=== PATIENT | male | born 1960 | race African-American/Black ===

== ENCOUNTER 2018-10-27 09:20 | Inpatient (IN) | payer OTHER ==
[2018-10-27 10:22] VITALS: BMI 16.7
--- NOTE | 2018-10-27 11:11 | HP ---
CIWA Score - Admission Criteria [facility] Guidelines: Admission for Medically Managed Detox: Requires at least one of the followin. CIWA greater than 12 2. Seizures within the past 24 hours 3. Delirium tremens within the past 24 hours 4. Hallucinations within the past 24 hours 5. Acute intervention needed for co occurring medical disorder 6. Acute intervention needed for co occurring psychiatric disorder 7. Severe withdrawal that cannot be handled at a lower level of care (continued vomiting, continued diarrhea, abnormal vital signs) requiring intravenous medication and/or fluids 8. Admission ROS [facility] - HPI Chief Complaint: i am here for rehab from crack Allergies/Adverse Reactions: Allergies Allergy/AdvReac Type Severity Reaction Status Date / Time peanut Allergy Severe Swelling Verified 10/27/18 10:55 NKDA Allergy Uncoded 10/27/18 10:55 History of Present Illness: this 57 years old male with crack dependence seeking rehab,patient was seen in [place] last night for coughing and yellowish ,had xray done at [facility],giving coughing, history of hypertension,non compliance hepatitis c follow up with medical provider,no treatment weight loss depression nicotine dependence longest period of sobriety 2 years non compliance with medication Exam Limitations: No Limitations - Ebola screening Have you traveled outside of the country in the last 21 days: No Have you had contact with anyone from an Ebola affected area: No Have you been sick,other than usual withdrawal symptoms: No Do you have a fever: No - Review of Systems Constitutional: No Symptoms Reported EENT: reports: No Symptoms Reported Respiratory: reports: No Symptoms reported, Other (coughing with yellowish mucous for 1 week) Cardiac: reports: No Symptoms Reported GI: reports: No Symptoms Reported : reports: No Symptoms Reported Musculoskeletal: reports: No Symptoms Reported Integumentary: reports: Dryness Neuro: reports: No Symptoms reported Endocrine: reports: No Symptoms Reported Hematology: reports: No Symptoms Reported Psychiatric: reports: No Sypmtoms Reported, Judgement Intact, Mood/Affect Appropiate, Orientated x3, Depressed Other Systems: Reviewed and Negative Patient History - Patient Medical History Hx Anemia: No Hx Asthma: No Hx Chronic Obstructive Pulmonary Disease (COPD): No Hx Cancer: No Hx Cardiac Disorders: No Hx Congestive Heart Failure: No Hx Hypertension: Yes (non compliance with medication) Hx Hypercholesterolemia: No Hx Pacemaker: No HX Cerebrovascular Accident: No Hx Seizures: No Hx Dementia: No Hx Diabetes: No Hx Gastrointestinal Disorders: No Hx Liver Disease: No Hx Genitourinary Disorders: No Hx Sexually Transmitted Disorders: No Hx Renal Disease (ESRD): No Hx Thyroid Disease: No Hx Human Immunodeficiency Virus (HIV): No (last 04/15 negative) Hx Hepatitis C: Yes (not treated) Hx Depression: Yes (no med) Hx Suicide Attempt: No Hx Bipolar Disorder: No Hx Schizophrenia: No Other Medical History: no suicidal,no homicidal,coughing with yellowish mucous for 1 week - Patient Surgical History Past Surgical History: No - PPD History Previous Implant?: Yes Documented Results: Negative w/o proof Implanted On Prior [facility] Admission?: No PPD to be Administered?: Yes - Smoking Cessation Smoking history: Current every day smoker Have you smoked in the past 12 months: Yes Aproximately how many cigarettes per day: 10 Cigars Per Day: 0 Hx Chewing Tobacco Use: No Initiated information on smoking cessation: Yes 'Breaking Loose' booklet given: 10/27/18 - Substance & Tx. History Hx Alcohol Use: No Hx Substance Use: Yes Substance Use Type: Cocaine Hx Substance Use Treatment: Yes (in 2016 [facility]) - Substances Abused Crack Route: Smoking Frequency: Daily Amount used: $100 Age of first use: 48 Date of Last Use: 10/26/18 Family Disease History - Family Disease History Family Disease History: Other: Father (alcohol,cirrhosis,), Mother ( alzeimer,) Admission Physical Exam [facility] - Vital Signs Vital Signs: Vital Signs - 24 hr 10/27/18 10:20 Temperature 98.8 F Pulse Rate 90 Respiratory 20 Rate Blood Pressure 170/110 H - Physical General Appearance: Yes: Within Normal Limits HEENTM: Yes: JOVITA, Pharynx Normal Respiratory: Yes: Lungs Clear, Normal Breath Sounds, No Respiratory Distress Neck: Yes: Within Normal Limits, Supple, Trachea in good position Breast: Yes: Within Normal Limits Cardiology: Yes: Within Normal Limits, Regular Rhythm, Regular Rate, S1, S2 Abdominal: Yes: Within Normal Limits, Normal Bowel Sounds, Non Tender, Soft Genitourinary: Yes: Within Normal Limits Back: Yes: Within Normal Limits Musculoskeletal: Yes: Within Normal Limits Extremities: Yes: Within Normal Limits Neurological: Yes: social security benefits interviewer II-XII NML intact, Fully Oriented, Alert, Motor Strength 5/5 Integumentary: Yes: Within Normal Limits Lymphatic: Yes: Within Normal Limits - Diagnostic (1) Cocaine dependence Current Visit: Yes Status: Acute (2) Essential hypertension Current Visit: Yes Status: Acute (3) Hepatitis C Current Visit: Yes Status: Acute (4) Weight loss Current Visit: Yes Status: Acute (5) Acute bronchitis Current Visit: Yes Status: Acute (6) Depression Current Visit: Yes Status: Acute (7) Nicotine dependence Current Visit: Yes Status: Acute Cleared for Admission [facility] - Detox or Rehab Claeared for Rehab Admission: Yes [facility] Breath Alcohol Content Breath Alcohol Content: 0 Urine Drug Screen - Results Drug Screen Negative: No Urine Drug Screen Results: MARINE-Cocaine Inpatient Rehab Admission - Rehab Decision to Admit Inpatient rehab admission?: Yes - Initial Determination Are CD services needed?: Yes Free of communicable disease: Yes Not in need of hospitalization: Yes - Rehab Admission Criteria Previous failed treatment: Yes Poor recovery environment: Yes Comorbidities: Yes Lacks judgement: No Patient is meeting Inpatient Rehab admission criteria:: Yes
[2018-10-27] MEDS ORDERED: MAG HYDROX/AL HYDROX/SIMETH 30 ML UNIT-DOSE CUP PO PRN (11:21)
[2018-10-27] MEDS ORDERED: MAGNESIUM HYDROX 2400MG/30ML ORAL SUSPENSION 30 ML CUP PO PRN (11:21)
[2018-10-27] MEDS ORDERED: NICOTINE POLACRILEX 2 MG GUM BUC PRN (11:21)
[2018-10-27] MEDS ORDERED: LOPERAMIDE HCL 2 MG CAPSULE PO PRN (11:21)
[2018-10-27] MEDS ORDERED: MAGNESIUM CITRATE 300 ML BOTTLE PO PRN (11:21)
[2018-10-27] MEDS ORDERED: hydrOXYzine PAMOATE 25 MG CAPSULE (FP) PO PRN (11:21)
[2018-10-27] MEDS ORDERED: ACETAMINOPHEN 325 MG TABLET (FP) PO PRN (11:21)
[2018-10-27] MEDS ORDERED: cloNIDine HCL 0.1 MG TABLET PO ONE (11:24)
[2018-10-27] MEDS ORDERED: AZITHROMYCIN 250 MG TABLET PO ONE (11:25)
[2018-10-27] MEDS ORDERED: TUBERCULIN PPD 5 TU/0.1ML VIAL ID ONE (12:07)
[2018-10-27] MEDS: LISINOPRIL 10 MG TABLET (FP) PO SCH (12:19)
[2018-10-27] MEDS: NICOTINE 21 MG/24 HOURS TOPICAL PATCH TD SCH (12:19)
[2018-10-27 15:40] LABS: HEMATOCRIT 36.2 % (35.4-49); HEMOGLOBIN 11.9 GM/dL (11.7-16.9); MCH 28.7 pg (25.7-33.7); MCHC 32.9 g/dl (32.0-35.9); MEAN CELL VOLUME 87.2 fl (80-96); PLATELET COUNT 230 K/MM3 (134-434); RBC 4.14 M/mm3 (4.00-5.60); RDW 14.4 % (11.9-15.9); WHITE BLOOD COUNT 3.3 K/mm3 (4.0-10.0)
[2018-10-27 15:58] LABS: ALBUMIN 3.4 g/dl (3.4-5.0); ALK PHOS 81 U/L (45-117); ANION GAP 5 MMOL/L (8-16); BLOOD UREA NITROGEN 16 mg/dL (7-18); CALCIUM 8.7 mg/dL (8.5-10.1); CHLORIDE 107 mmol/L (98-107); CO2 30 mmol/L (21-32); CREATININE 1.4 mg/dL (0.55-1.3); GLUCOSE,RANDOM 86 mg/dL (74-106); POTASSIUM 4.2 mmol/L (3.5-5.1); SGOT/AST 30 U/L (15-37); SGPT/ALT 28 U/L (13-61); SODIUM 141 mmol/L (136-145); TOT PROT 7.1 g/dl (6.4-8.2)
[2018-10-27] MEDS: THIAMINE HCL 100 MG TABLET (FP) PO SCH (21:02)
[2018-10-27] MEDS ORDERED: MELATONIN 5 MG TABLETS PO PRN (22:00)
[2018-10-27 23:18] LABS: URINE APPEARANCE TURBID; URINE BILIRUBIN NEGATIVE (<2.0 mg/dL); URINE COLOR YELLOW; URINE GLUCOSE (UA) NEGATIVE (NEGATIVE); URINE KETONE NEGATIVE (NEGATIVE); URINE LEUK ESTERASE NEGATIVE (NEGATIVE); URINE NITRITE NEGATIVE (NEGATIVE); URINE PROTEIN 1+ (NEGATIVE); URINE UROBILINOGEN NEGATIVE mg/dL (0.2-1.0)
[2018-10-27 23:20] LABS: EPI CELLS RARE /HPF (FEW); URINE BACTERIA RARE /hpf (NONE SEEN); URINE MUCUS FEW
[2018-10-28] MEDS: NICOTINE 21 MG/24 HOURS TOPICAL PATCH TD SCH (09:29)
[2018-10-28] MEDS: PRENATAL VITAMINS W/ FOLIC ACID TABLET (FP) PO SCH (09:29)
[2018-10-28] MEDS: LISINOPRIL 10 MG TABLET (FP) PO SCH (09:29)
[2018-10-28] MEDS: P-EPHED 60MG/TRIPROLIDI 2.5MG TABLET PO PRN ×2 (09:31→18:42)
[2018-10-28] MEDS: guaiFENesin/D-METHORPHAN HB 10 ML UNIT-DOSE CUPS PO PRN ×2 (09:31→18:42)
[2018-10-28] MEDS: MENTHOL/PHENOL 1 EACH UD MM PRN ×2 (09:33→21:03)
[2018-10-28] MEDS: AZITHROMYCIN 250 MG TABLET PO SCH (10:53)
[2018-10-28] MEDS: THIAMINE HCL 100 MG TABLET (FP) PO SCH (21:02)
[2018-10-29] MEDS: PRENATAL VITAMINS W/ FOLIC ACID TABLET (FP) PO SCH (09:30)
[2018-10-29] MEDS: AZITHROMYCIN 250 MG TABLET PO SCH (09:30)
[2018-10-29] MEDS: LISINOPRIL 10 MG TABLET (FP) PO SCH (09:30)
[2018-10-29] MEDS: NICOTINE 21 MG/24 HOURS TOPICAL PATCH TD SCH (09:31)
[2018-10-29] MEDS: P-EPHED 60MG/TRIPROLIDI 2.5MG TABLET PO PRN (16:31)
[2018-10-29] MEDS: guaiFENesin/D-METHORPHAN HB 10 ML UNIT-DOSE CUPS PO PRN (16:31)
[2018-10-29] MEDS: MENTHOL/PHENOL 1 EACH UD MM PRN (16:31)
--- NOTE | 2018-10-29 18:09 | PN ---
[facility] Progress Note Note: bp 152/105,history of hypertension on medication lisinopril 10 mgs po daily, complaint of headache, clonidine 0,1 mg po now,bp monitoring
[2018-10-29] MEDS: IBUPROFEN 400 MG TABLET (FP) PO PRN (21:04)
[2018-10-29] MEDS: THIAMINE HCL 100 MG TABLET (FP) PO SCH (21:04)
[2018-10-29] MEDS ORDERED: cloNIDine HCL 0.1 MG TABLET PO ONE (22:11)
--- NOTE | 2018-10-29 22:14 | PN ---
[facility] Progress Note Note: Patient's blood pressure is B/P . Patient is asymptomatic Vital Signs Temperature 98.0 F 10/29/18 17:58 Pulse Rate 95 H 10/29/18 22:07 Respiratory Rate 18 10/29/18 17:58 Blood Pressure 153/109 H 10/29/18 22:07 O2 Sat by Pulse Oximetry (%) Action: Clonidine 0.1mg tablet oral ordered
[2018-10-30] MEDS: P-EPHED 60MG/TRIPROLIDI 2.5MG TABLET PO PRN (10:18)
[2018-10-30] MEDS: NICOTINE 21 MG/24 HOURS TOPICAL PATCH TD SCH (10:18)
[2018-10-30] MEDS: PRENATAL VITAMINS W/ FOLIC ACID TABLET (FP) PO SCH (10:18)
[2018-10-30] MEDS: guaiFENesin/D-METHORPHAN HB 10 ML UNIT-DOSE CUPS PO PRN (10:18)
[2018-10-30] MEDS: LISINOPRIL 10 MG TABLET (FP) PO SCH (10:21)
--- NOTE | 2018-10-30 10:24 | PN ---
[facility] Progress Note Note: PT C/O COUGHING WITH YELLOW SPUTUM OVER 1 WEEK, RUNNY NOSE, SNEEZING, HEADACHE AND ANXIETY. PT WAS ADMITTED ON 10/27/18 WITH SAME C/O AND DX ACUTE BRONCHITIS, WAS STARTED ON Z-KAL WHICH WAS COMPLETED THIS MORNING. ALSO CONCERNED WITH ELEVATE BP. PT HAD BEEN NONCOMPLIANT WITH MEDS PER HX BUT TAKEN LISINOPRIL 10 MG PO DAILY ON ADMISSION. DENIES NAUSEA, VOMITING OR DIARRHEA. AFEBRILE. PT STILL CONCERNED WHY HE IS STILL COUGHING AND WANTS "SOMETHING TO GET BETTER". ALERT O X 3. Vital Signs (72 hours) 10/27/18 10/28/18 10/28/18 13:56 00:30 03:30 Temperature 99.1 F Pulse Rate 84 Respiratory 20 18 18 Rate Blood Pressure 150/103 H 10/28/18 10/28/18 10/29/18 06:42 09:17 00:30 Temperature 97.7 F Pulse Rate 71 84 Respiratory 17 18 Rate Blood Pressure 125/89 144/86 10/29/18 10/29/18 10/29/18 03:30 06:42 09:05 Temperature 99.0 F Pulse Rate 75 84 Respiratory 18 18 Rate Blood Pressure 153/81 147/91 10/29/18 10/29/18 10/29/18 16:30 17:58 22:07 Temperature 99.6 F 98.0 F Pulse Rate 98 H 101 H 95 H Respiratory 18 18 Rate Blood Pressure 152/105 H 144/104 H 153/109 H 10/30/18 10/30/18 10/30/18 00:30 03:30 06:52 Temperature 98.6 F Pulse Rate 74 Respiratory 18 18 18 Rate Blood Pressure 108/76 Laboratory Tests 10/27/18 10/27/18 10/27/18 12:15 12:15 12:15 WBC 3.3 L RBC 4.14 Hgb 11.9 Hct 36.2 MCV 87.2 MCH 28.7 MCHC 32.9 RDW 14.4 Plt Count 230 MPV 9.0 Sodium 141 Potassium 4.2 Chloride 107 Carbon Dioxide 30 Anion Gap 5 L BUN 16 Creatinine 1.4 H Creat Clearance w eGFR 51.87 Random Glucose 86 Calcium 8.7 Total Bilirubin 1.0 AST 30 ALT 28 Alkaline Phosphatase 81 Total Protein 7.1 Albumin 3.4 Urine Color Urine Appearance Urine pH Ur Specific [place] Urine Protein Urine Glucose (UA) Urine Ketones Urine Blood Urine Nitrite Urine Bilirubin Urine Urobilinogen Ur Leukocyte Esterase Urine WBC (Auto) Urine RBC (Auto) Ur Epithelial Cells Urine Bacteria Urine Mucus RPR Titer Nonreactive 10/27/18 14:00 WBC RBC Hgb Hct MCV MCH MCHC RDW Plt Count MPV Sodium Potassium Chloride Carbon Dioxide Anion Gap BUN Creatinine Creat Clearance w eGFR Random Glucose Calcium Total Bilirubin AST ALT Alkaline Phosphatase Total Protein Albumin Urine Color Yellow Urine Appearance Turbid Urine pH 5.0 Ur Specific [place] 1.027 Urine Protein 1+ H Urine Glucose (UA) Negative Urine Ketones Negative Urine Blood Negative Urine Nitrite Negative Urine Bilirubin Negative Urine Urobilinogen Negative Ur Leukocyte Esterase Negative Urine WBC (Auto) 2 Urine RBC (Auto) 4 Ur Epithelial Cells Rare Urine Bacteria Rare Urine Mucus Few RPR Titer LUNGS:CLEAR TO AUSCULTATE; NORMAL BREATH SOUNDS AND GOOD AIR FLOW. A:URI DEHYDRATION PLANS:DISCUSSED WITH PATIENT TO INCREASE PO FLUIDS ROBITTUSSIN DM PRN FOR COUGH ACTIFED FOR NASAL CONGESTION INCREASE ENSURE PLUS 120 ML PO TID TYLENOL OR MOTRIN FOR HEADACHE ENCOURAGE PATIENT TO REPORT TO STAFF/SUPERVISOR BORDER DEPARTMENT IF SYMPTOMS PERSIST
[2018-10-30] MEDS ORDERED: LISINOPRIL 10 MG TABLET (FP) PO SCH (10:30)
--- NOTE | 2018-10-30 11:08 | EKG ---
Test Reason : Blood Pressure : / mmHG Vent. Rate : 069 BPM Atrial Rate : 069 BPM P-R Int : 120 ms QRS Dur : 080 ms QT Int : 466 ms P-R-T Axes : 054 047 051 degrees QTc Int : 499 ms NORMAL SINUS RHYTHM POSSIBLE LEFT ATRIAL ENLARGEMENT LEFT VENTRICULAR HYPERTROPHY T WAVE ABNORMALITY, CONSIDER ANTERIOR ISCHEMIA PROLONGED QT ABNORMAL ECG NO PREVIOUS ECGS AVAILABLE Confirmed by ZAUL GILES MD ([id number]) on 10/30/2018 11:08:31 AM Referred By: Confirmed By:AZUL GILES MD
[2018-10-30] MEDS: IBUPROFEN 400 MG TABLET (FP) PO PRN (17:53)
[2018-10-30] MEDS: THIAMINE HCL 100 MG TABLET (FP) PO SCH (21:07)
--- NOTE | 2018-10-30 23:38 | PN ---
[facility] Progress Note Note: asked to see client for elevated bp . upon arrival client noted seated in hallway upset with hospital security present. client reports his bp is elevated and he is not recieving txment. refused Ekg for c/o c.p. He states he does not want help. He wants to go to the hospital because his b/p is elevated. Feels as if the staff is working against him. client was offered to have another staff perform functions. He was also asked if he would like to transfer to another floor. Client refused all options. He is now denying c.p., sob, dismissive to provider and walked off into his room. Client is noted pacing back and forth yelling unreceptive to discussion and care. will allow client to calm down and will re-approach at a later time. He is a/o x3 agitated but nad noted. Vital Signs - 24 hr 10/30/18 10/30/18 10/30/18 00:30 03:30 06:52 Temperature 98.6 F Pulse Rate 74 Respiratory 18 18 18 Rate Blood Pressure 108/76 10/30/18 10/30/18 09:30 22:30 Temperature 98.8 F Pulse Rate 80 92 H Respiratory 18 18 Rate Blood Pressure 134/94 191/126 H 2400 provider went to revisit client. Whom was seen lying in his bed nad. Discussed with client findings of ekg which he had agreed to have done at some point after speaking with him earlier. Findings are c/w with previous ekg noted on 10/27 except for a few pvc. Provider offered to repeat b/p . Client immediately sprung oob and stated that "you are trying to kick me out" reassured client that this is not the case. But client again unreceptive. Stating " I am fine, I plan on leaving in the morning". continue to monitor clinically.
--- NOTE | 2018-10-31 03:38 | PN ---
[facility] Progress Note Note: PT REQUESTING TO SIGN OUT. D/W CLIENT ABOUT RISKS INVOLVED IN SIGNING OUT. ATTEMPT TO ENCOURAGE CLIENT TO CONTINUE TXMENT UNSUCCESSFUL. CLIENT FINALLY AGREES TO HAVE B/P CHECKED. Last Vital Signs Temp Pulse Resp BP Pulse Ox 98.6 F 85 20 172/110 H 10/31/18 03:29 10/31/18 03:29 10/31/18 03:29 10/31/18 03:29 CLIENT IS A/O X3 ASYMPTOMATIC. CLIENT IS IRRITABLE, AGITATED DECLINES TXMENT UNLESS HE IS SENT TO THE HOSPITAL.. CLIENT IS NOT RECEPTIVE TO PROVIDER OR OTHER STAFF. TRANSFER CLIENT TO ER FOR HTN 50 Y.O. MALE W/ COCAINE DEPENDENCE, HTN NON COMPLIANT WITH MEDICATION REGIMEN ASKING TO GO TO HOSPITAL FOR ASYMPTOMATIC ELEVATED PRESSURE, TRANSFER CLIENT TO ER/WILL UNSUCCESSFUL ATTEMPTS TO ENDORSE CLIENT TO WILL X2
--- NOTE | 2018-10-31 06:26 | PN ---
[facility] Progress Note Note: INFORMED CLIENT CLEARED TO RETURN; PER EM BA CXR NEGATIVE PT C/O COUGH GREATER THAN 1 MONTH DC LISINOPRIL START NORVASC 5 MG SHE ALSO REPORTS CLIENT EXPRESSES THAT HE WOULD LIKE TO RETURN FOR CONTINUATION OF CARE HE HAS NOWHERE ELSE TO GO Medical Decision Making - Medical Decision Making 57 y/o M hx of crack dependence (last used crack around 1 week ago), HTN, hep C , depression signed out AMA from [facility] to get evaluated in hospital as states having dry cough with L sided abd/chest pain x 1 month, not getting any better. Also mentions that since he has been in rehab (admitted 4 days ago) , his BP has been elevated. Normally takes Lisinopril 10 mg for HTN, but states yesterday his dose was increased to 20 mg. Did not take any BP meds today. Patient was seen in [facility] last week, had CXR and labs done, told he had bronchitis, and given course of Z-horacio which patient finished 3/. However, still has not noted any improvement in cough. Patient mentions having normal cardiac cath last year. Denies fever, sob, n/v/d. EKG: NSR at 69 bpm, LVH (seen on prior EKG as well) CXR wet read negative Chronic dry cough likely related to Lisinopril use Patient given Norvasc 5 mg with repeat BP being 152/94, HR 77 St[facility] [report given to MASON Shabazz]
[2018-10-31] MEDS: NICOTINE 21 MG/24 HOURS TOPICAL PATCH TD SCH (10:00)
[2018-10-31] MEDS: PRENATAL VITAMINS W/ FOLIC ACID TABLET (FP) PO SCH (10:00)
[2018-10-31 12:54] VITALS: TEMP 97.8
[2018-10-31 12:55] VITALS: BP 154/103; PULSE 90
--- NOTE | 2018-10-31 14:01 | EKG ---
Test Reason : Blood Pressure : / mmHG Vent. Rate : 080 BPM Atrial Rate : 080 BPM P-R Int : 124 ms QRS Dur : 086 ms QT Int : 428 ms P-R-T Axes : 073 037 067 degrees QTc Int : 493 ms SINUS RHYTHM WITH MARKED SINUS ARRHYTHMIA WITH OCCASIONAL PREMATURE VENTRICULAR COMPLEXES POSSIBLE LEFT ATRIAL ENLARGEMENT LEFT VENTRICULAR HYPERTROPHY PROLONGED QT ABNORMAL ECG WHEN COMPARED WITH ECG OF 27-OCT-2018 11:50, PREMATURE VENTRICULAR COMPLEXES ARE NOW PRESENT T WAVE INVERSION NO LONGER EVIDENT IN ANTERIOR LEADS Confirmed by MD Jero, Jani ([id number]) on 10/31/2018 2:00:58 PM Referred By: Confirmed By:Jani Nogueira MD
--- NOTE | 2018-10-31 15:53 | PN ---
[facility] Progress Note Note: PT DECLINED TO CONTINUE WITH REHAB FOR PERSONAL REASONS STATING HE DOES NOT LIKE IT HERE. PT WAS COUNSELLED BY HIS COUNSELLOR, NURSE AND THIS [employer] PRESS OPERATOR BUT PT INSISTS HE WANTS TO LEAVE. PT WAS REFERRED BY HIS COUNSELLOR TO THE [facility] ON [address], [place]. [place] STATED HE HAS PRIMARY CARE WITH [facility] IN THE [place] AND HAS APPOINTMENT WITH HIS DOCTOR ON . PT STATED THAT HE HAS OWN MEDICATIONS. PT IS ALERT OX3. DENIES S/H/I. Home Medications Medication Instructions Recorded Lisinopril [Prinivil] 20 mg PO DAILY 10/27/18 Loperamide HCl [Imodium -] 4 mg PO Q6H PRN 10/31/18 Magnesium Citrate [Citroma -] 150 ml PO Q48H PRN 10/31/18 Magnesium Hydrox 2400MG/30Ml [Milk 30 ml PO DAILY PRN 10/31/18 of Magnesia -] Melatonin 5 mg PO HS PRN 10/31/18 Nicotine Patch [Nicoderm Patch -] 1 patch TD DAILY 10/31/18 P-Ephed 60Mg/Triprolidi 2.5MG 1 combo PO TID PRN 10/31/18 [Actifed -] Thiamine Mononitrate [Vitamin B-1] 100 mg PO HS 10/31/18 Vital Signs (72 hours) 10/29/18 10/29/18 10/29/18 00:30 03:30 06:42 Temperature 99.0 F Pulse Rate 75 Respiratory 18 18 18 Rate Blood Pressure 153/81 10/29/18 10/29/18 10/29/18 09:05 16:30 17:58 Temperature 99.6 F 98.0 F Pulse Rate 84 98 H 101 H Respiratory 18 18 Rate Blood Pressure 147/91 152/105 H 144/104 H 10/29/18 10/30/18 10/30/18 22:07 00:30 03:30 Temperature Pulse Rate 95 H Respiratory 18 18 Rate Blood Pressure 153/109 H 10/30/18 10/30/18 10/30/18 06:52 09:30 22:30 Temperature 98.6 F 98.8 F Pulse Rate 74 80 92 H Respiratory 18 18 18 Rate Blood Pressure 108/76 134/94 191/126 H 10/31/18 10/31/1810/31/19 00:30 03:29 12:52 Temperature 98.6 F 97.8 F Pulse Rate 85 83 Respiratory 18 20 16 Rate Blood Pressure 172/110 H 148/94 10/31/18 12:54 Temperature 97.8 F Pulse Rate 90 Respiratory 16 Rate Blood Pressure 154/103 H Laboratory Tests 10/27/18 10/27/18 10/27/18 12:15 12:15 12:15 WBC 3.3 L RBC 4.14 Hgb 11.9 Hct 36.2 MCV 87.2 MCH 28.7 MCHC 32.9 RDW 14.4 Plt Count 230 MPV 9.0 Sodium 141 Potassium 4.2 Chloride 107 Carbon Dioxide 30 Anion Gap 5 L BUN 16 Creatinine 1.4 H Creat Clearance w eGFR 51.87 Random Glucose 86 Calcium 8.7 Total Bilirubin 1.0 AST 30 ALT 28 Alkaline Phosphatase 81 Total Protein 7.1 Albumin 3.4 Urine Color Urine Appearance Urine pH Ur Specific [place] Urine Protein Urine Glucose (UA) Urine Ketones Urine Blood Urine Nitrite Urine Bilirubin Urine Urobilinogen Ur Leukocyte Esterase Urine WBC (Auto) Urine RBC (Auto) Ur Epithelial Cells Urine Bacteria Urine Mucus RPR Titer Nonreactive 10/27/18 14:00 WBC RBC Hgb Hct MCV MCH MCHC RDW Plt Count MPV Sodium Potassium Chloride Carbon Dioxide Anion Gap BUN Creatinine Creat Clearance w eGFR Random Glucose Calcium Total Bilirubin AST ALT Alkaline Phosphatase Total Protein Albumin Urine Color Yellow Urine Appearance Turbid Urine pH 5.0 Ur Specific [place] 1.027 Urine Protein 1+ H Urine Glucose (UA) Negative Urine Ketones Negative Urine Blood Negative Urine Nitrite Negative Urine Bilirubin Negative Urine Urobilinogen Negative Ur Leukocyte Esterase Negative Urine WBC (Auto) 2 Urine RBC (Auto) 4 Ur Epithelial Cells Rare Urine Bacteria Rare Urine Mucus Few RPR Titer NAD MEDICALLY STABLE PLAN:FOLLOW UP WITH AFTERCARE RECOMMENDATION ABOVE. FOLLOW UP WITH PCP FOR MEDICAL MANAGEMENT. FOLLOW UP WITH YOUR YOUR APPOINTMENT ON 11/13/18.
[2018-11-01] MEDS ORDERED: amLODIPine BESYLATE 5 MG TABLET (FP) PO SCH (10:00)
== END 2018-10-31 16:40 | disposition left against medical advice (07) | DRG 770 ==
LOC: YASAS 09:20 → Y5N 11:15
PROVIDERS: ADMIT Neuromusculoskeletal Medicine & OMM; ATTEND Neuromusculoskeletal Medicine & OMM
PROC: HZ2ZZZZ Detoxification Services for Substance Abuse Treatment (ICD-10-PCS; principal; 2018-10-27)
DX: F14.20 Cocaine dependence, uncomplicated (principal); F17.210 Nicotine dependence, cigarettes, uncomplicated; F32.9 Major depressive disorder, single episode, unspecified; I10 Essential (primary) hypertension; J20.9 Acute bronchitis, unspecified; E86.0 Dehydration; B18.2 Chronic viral hepatitis C; R63.4 Abnormal weight loss; Z68.1 Body mass index [BMI] 19.9 or less, adult; Z91.14 Patient's other noncompliance with medication regimen
CPT/HCPCS: 36415; 80053; 81003; 81015; 85027; 86593; 93005; 93010; J0735

== ENCOUNTER 2018-10-31 04:14 | Emergency (ER) | payer OTHER ==
--- NOTE | 2018-10-31 04:54 | PDOC ---
Medical Decision Making - Medical Decision Making 10/31/18 04:54 Patient seen by the advanced practice provider under my direct supervision. Ancillary testing reviewed as necessary. I agree with plan as outlined by the advanced practice provider. *DC/Admit/Observation/Transfer Diagnosis at time of Disposition: Hypertension - Discharge Dispostion Condition at time of disposition: Fair - Referrals - Patient Instructions - Post Discharge Activity
[2018-10-31 04:56] VITALS: TEMP 98.6; BMI 18.8
[2018-10-31] MEDS ORDERED: amLODIPine BESYLATE 5 MG TABLET (FP) PO ONE (05:27)
[2018-10-31] MEDS ORDERED: amLODIPine BESYLATE 5 MG TABLET (FP) ONE (05:30)
--- NOTE | 2018-10-31 06:29 | PDOC ---
History of Present Illness - General Chief Complaint: Blood Pressure Problem Stated Complaint: HYPERTENSION Time Seen by Provider: 10/31/18 04:51 History Source: Patient Exam Limitations: No Limitations Past History - Past Medical History Allergies/Adverse Reactions: Allergies Allergy/AdvReac Type Severity Reaction Status Date / Time peanut Allergy Severe Swelling Verified 10/31/18 04:57 NKDA Allergy Uncoded 10/31/18 04:57 Home Medications: Ambulatory Orders Lisinopril [Prinivil] 20 mg PO DAILY 10/27/18 Loperamide HCl [Imodium -] 4 mg PO Q6H PRN 10/31/18 Magnesium Citrate [Citroma -] 150 ml PO Q48H PRN 10/31/18 Magnesium Hydrox 2400MG/30Ml [Milk of Magnesia -] 30 ml PO DAILY PRN 10/31/18 Melatonin 5 mg PO HS PRN 10/31/18 Nicotine Patch [Nicoderm Patch -] 1 patch TD DAILY 10/31/18 P-Ephed 60Mg/Triprolidi 2.5MG [Actifed -] 1 combo PO TID PRN 10/31/18 Thiamine Mononitrate [Vitamin B-1] 100 mg PO HS 10/31/18 Anemia: No Asthma: No Cancer: No Cardiac Disorders: No CVA: No COPD: No CHF: No Dementia: No Diabetes: No GI Disorders: No Disorders: No HTN: Yes (non compliance with medication) Hypercholesterolemia: No Kidney Stones: No Liver Disease: No Seizures: No Thyroid Disease: No - Surgical History Abdominal Surgery: No Appendectomy: No Cardiac Surgery: No Cholecystectomy: No Lung Surgery: No Neurologic Surgery: No Orthopedic Surgery: No - Reproductive History Testicular Surgery: No - Immunization History Immunization Up to Date: Yes - Suicide/Smoking/Psychosocial Hx Smoking History: Former smoker Have you smoked in the past 12 months: No Number of Cigarettes Smoked Daily: 10 Cigars Per Day: 0 Information on smoking cessation initiated: No 'Breaking Loose' booklet given: 10/27/18 Hx Alcohol Use: Yes Drug/Substance Use Hx: No Substance Use Type: Cocaine Hx Substance Use Treatment: Yes (in 2016 [facility]) *Physical Exam - Vital Signs Last Vital Signs Temp Pulse Resp BP Pulse Ox 98.6 F 77 18 152/94 100 10/31/18 04:14 10/31/18 06:12 10/31/18 06:12 10/31/18 06:12 10/31/18 06:12 - Physical Exam General Appearance: No: Apparent Distress Respiratory/Chest: positive: Chest Tender (+reproducible L sided chest pain), Lungs Clear, Normal Breath Sounds. negative: Respiratory Distress Cardiovascular: positive: Regular Rhythm, Regular Rate, S1, S2. negative: Murmur Gastrointestinal/Abdominal: positive: Normal Bowel Sounds, Soft. negative: Tender, Distended, Guarding, Rebound Integumentary: positive: Normal Color Neurologic: positive: Fully Oriented, Alert, Normal Mood/Affect Moderate Sedation - Procedure Monitoring Vital Signs: Procedure Monitoring Vital Signs Temperature 98.6 F 10/31/18 04:14 Pulse Rate 77 10/31/18 06:12 Respiratory Rate 18 10/31/18 06:12 Blood Pressure 152/94 10/31/18 06:12 O2 Sat by Pulse Oximetry (%) 100 10/31/18 06:12 ED Treatment Course - RADIOLOGY Radiology Studies Ordered: Category Date Time Status CHEST PA & LAT [RAD] Stat Radiology 10/31/18 05:27 Taken - Medications Given in the ED: ED Medications Discontinued Medications Generic Name Dose Route Start Last Admin Trade Name Freq PRN Reason Stop Dose Admin Amlodipine Besylate 5 mg 10/31/18 05:27 10/31/18 05:32 Norvasc - PO 10/31/18 05:28 5 mg ONCE ONE Administration Medical Decision Making - Medical Decision Making 57 y/o M hx of crack dependence (last used crack around 1 week ago), HTN, hep C , depression signed out AMA from [facility] to get evaluated in hospital as states having dry cough with L sided abd/chest pain x 1 month, not getting any better. Also mentions that since he has been in rehab (admitted 4 days ago) , his BP has been elevated. Normally takes Lisinopril 10 mg for HTN, but states yesterday his dose was increased to 20 mg. Did not take any BP meds today. Patient was seen in [facility] last week, had CXR and labs done, told he had bronchitis, and given course of Z-horacio which patient finished 3/4. However, still has not noted any improvement in cough. Patient mentions having normal cardiac cath last year. Denies fever, sob, n/v/d. EKG: NSR at 69 bpm, LVH (seen on prior EKG as well) CXR wet read negative Chronic dry cough likely related to Lisinopril use Patient given Norvasc 5 mg with repeat BP being 152/94, HR 77 Stable to return to [facility] [report given to MASON Shabazz] 10/31/18 06:17 *DC/Admit/Observation/Transfer Diagnosis at time of Disposition: Dry cough Hypertension Qualifiers: Hypertension type: unspecified Qualified Code(s): I10 - Essential (primary) hypertension - Discharge Dispostion Disposition: HOME Condition at time of disposition: Stable Decision to Admit order: No - Referrals - Patient Instructions Printed Discharge Instructions: DI for High Blood Pressure Additional Instructions: Thank you for choosing [facility]. It was a pleasure taking care of you. Your chest xray was normal here. Please stop taking your Lisinopril as it is likely causing your cough Instead take Norvasc 5 mg, once a day. Return to the Emergency Department if your symptoms worsen or persist, you have fever, shortness of breath, chest pain, severe abdominal pain, vomiting or other concerning symptoms. - Post Discharge Activity
[2018-10-31 10:35] VITALS: BP 160/91; PULSE 87
--- NOTE | 2018-10-31 13:47 | EKG ---
Test Reason : Blood Pressure : / mmHG Vent. Rate : 069 BPM Atrial Rate : 069 BPM P-R Int : 120 ms QRS Dur : 070 ms QT Int : 446 ms P-R-T Axes : 053 022 071 degrees QTc Int : 477 ms SINUS RHYTHM WITH PREMATURE ATRIAL COMPLEXES VOLTAGE CRITERIA FOR LEFT VENTRICULAR HYPERTROPHY ABNORMAL ECG WHEN COMPARED WITH ECG OF 30-OCT-2018 23:17, PREMATURE VENTRICULAR COMPLEXES ARE NO LONGER PRESENT PREMATURE ATRIAL COMPLEXES ARE NOW PRESENT Confirmed by MD Jero, Jani ([id number]) on 10/31/2018 1:47:15 PM Referred By: Confirmed By:Jani Nogueira MD
[2018-11-07] MEDS ORDERED: cloNIDine-TTS 0.2 MG/24 HOURS PATCH.TDWK TD ONE (10:18)
== END 2018-10-31 10:36 | disposition home or self-care (01) ==
LOC: JER 04:14
DX: I10 Essential (primary) hypertension (principal); R05 Cough; F32.9 Major depressive disorder, single episode, unspecified; B18.2 Chronic viral hepatitis C; F14.10 Cocaine abuse, uncomplicated
CPT/HCPCS: 71046-TC-FY; 93005; 93010; 99281-25

== ENCOUNTER 2019-09-06 10:18 | Inpatient (IN) | payer OTHER ==
[2019-09-06 12:24] VITALS: BMI 17.7
--- NOTE | 2019-09-06 17:47 | HP ---
CIWA Score Nausea/Vomitin-Mild Nausea/No Vomiting Muscle Tremors: 3 Anxiety: 4-Mod. Anxious/Guarded Agitation: 4-Moderately Restless Paroxysmal Sweats: 2 Orientation: 0-Oriented Tacttile Disturbances: 0-None Auditory Disturbances: 0-None Visual Disturbances: 0-None Headache: 4-Moderately Severe CIWA-Ar Total Score: 18 - Admission Criteria OASAS Guidelines: Admission for Medically Managed Detox: Requires at least one of the followin. CIWA greater than 12 2. Seizures within the past 24 hours 3. Delirium tremens within the past 24 hours 4. Hallucinations within the past 24 hours 5. Acute intervention needed for co occurring medical disorder 6. Acute intervention needed for co occurring psychiatric disorder 7. Severe withdrawal that cannot be handled at a lower level of care (continued vomiting, continued diarrhea, abnormal vital signs) requiring intravenous medication and/or fluids 8. Admitting History and Physical - Smoking History Smoking history: Former smoker Have you smoked in the past 12 months: No Aproximately how many cigarettes per day: 10 - Alcohol/Substance Use Hx Alcohol Use: Yes Admission [facility] Chief Complaint: Alcohol withdrawal symptoms Allergies/Adverse Reactions: Allergies Allergy/AdvReac Type Severity Reaction Status Date / Time peanut Allergy Severe Swelling Verified 10/31/18 04:57 NKDA Allergy Uncoded 10/31/18 04:57 peanut butter Allergy Swelling Uncoded 09/06/19 12:16 History of Present Illness: 58 years old male with a long history of alcohol dependence (since age 13) is seeking admission to detox. Patient's last admission to [facility] was for the period 10/27/2018- 10/31/2018. He reports that his last detox was at [address] He has medical history of hypertension, Hep C and Psych. history of of Depression and anxiety. He denies suicidal ideation at this time. Patient is homeless and is in a prison at [facility]. 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 Exam Limitations: No Limitations - Ebola screening Have you traveled outside of the country in the last 21 days: No Have you had contact with anyone from an Ebola affected area: No Do you have a fever: No - Review of Systems Constitutional: Chills, Malaise, Changes in sleep EENT: reports: No Symptoms Reported Respiratory: reports: No Symptoms reported Cardiac: reports: No Symptoms Reported GI: reports: Diarrhea (diarrhea x 3), Poor Appetite, Poor Fluid Intake, Abdominal cramping : reports: No Symptoms Reported Musculoskeletal: reports: No Symptoms Reported Integumentary: reports: Dryness, Flushing Neuro: reports: Headache, Tremors Endocrine: reports: No Symptoms Reported Hematology: reports: No Symptoms Reported Psychiatric: reports: Orientated x3, Anxious, Depressed Other Systems: Reviewed and Negative Patient History - Patient Medical History Hx Anemia: No Hx Asthma: No Hx Chronic Obstructive Pulmonary Disease (COPD): No Hx Cancer: No Hx Cardiac Disorders: No Hx Congestive Heart Failure: No Hx Hypertension: Yes (non compliance with medication) Hx Hypercholesterolemia: No Hx Pacemaker: No HX Cerebrovascular Accident: No Hx Seizures: No Hx Dementia: No Hx Diabetes: No Hx Gastrointestinal Disorders: No Hx Liver Disease: No Hx Genitourinary Disorders: No Hx Sexually Transmitted Disorders: No Hx Renal Disease (ESRD): No Hx Thyroid Disease: No Hx Human Immunodeficiency Virus (HIV): No (December 2018) Hx Hepatitis C: Yes (not treated) Hx Depression: Yes (NMot on medication) Hx Suicide Attempt: No (Denies suicidal ideation at this time) Hx Bipolar Disorder: No Hx Schizophrenia: No Other Medical History: ANXIETY - Patient Surgical History Past Surgical History: No Hx Neurologic Surgery: No Hx Cataract Extraction: No Hx Cardiac Surgery: No Hx Lung Surgery: No Hx Breast Biopsy: No Hx Abdominal Surgery: No Hx Appendectomy: No Hx Cholecystectomy: No Hx Genitourinary Surgery: No Hx Orthopedic Surgery: No Anesthesia Reaction: No - PPD History Previous Implant?: Yes Documented Results: Negative w/proof Implanted On Prior [facility] Admission?: Yes Date: 10/29/18 PPD to be Administered?: No - Smoking Cessation Smoking history: Current every day smoker Have you smoked in the past 12 months: Yes Aproximately how many cigarettes per day: 8 Cigars Per Day: 0 Hx Chewing Tobacco Use: No Initiated information on smoking cessation: Yes 'Breaking Loose' booklet given: 09/06/19 - Substance & Tx. History Hx Alcohol Use: Yes Hx Substance Use: Yes Substance Use Type: Alcohol, Cocaine, Marijuana Hx Substance Use Treatment: Yes ( [address]) - Substances abused Crack Substance route: Smoking Frequency: 3-6 times per week Amount used: $200-$300 Age of first use: 43 Date of last use: 09/05/19 Alcohol Substance route: Oral Frequency: 3-6 times per week Amount used: 1 pint of vodka Age of first use: 13 Date of last use: 09/06/19 Admission Physical Exam [facility] - Vital Signs Vital Signs: Vital Signs - 24 hr 09/06/19 12:18 Temperature 97.0 F L Pulse Rate 101 H Respiratory 18 Rate Blood Pressure 156/104 H - Physical General Appearance: Yes: Moderate Distress, Tremorous, Sweating, Anxious HEENTM: Yes: Within Normal Limits Respiratory: Yes: Lungs Clear, Normal Breath Sounds, No Respiratory Distress Neck: Yes: Supple Breast: Yes: Breast Exam Deferred Cardiology: Yes: Tachycardia Abdominal: Yes: Normal Bowel Sounds, Soft Genitourinary: Yes: Within Normal Limits Back: Yes: Normal Inspection Musculoskeletal: Yes: Within Normal Limits Extremities: Yes: Tremors Neurological: Yes: Alert, Normal Mood/Affect Integumentary: Yes: Warm Lymphatic: Yes: Within Normal Limits - Diagnostic (1) Alcohol dependence with withdrawal, uncomplicated Current Visit: Yes Status: Acute (2) Marijuana dependence Current Visit: Yes Status: Chronic (3) Bronchitis Current Visit: Yes Status: Chronic (4) Cocaine dependence Current Visit: Yes Status: Chronic Qualifiers: Substance use status: in withdrawal Qualified Code(s): F14.23 - Cocaine dependence with withdrawal (5) Depression Current Visit: Yes Status: Chronic Qualifiers: Depression Type: unspecified Qualified Code(s): F32.9 - Major depressive disorder, single episode, unspecified (6) Hepatitis C Current Visit: Yes Status: Chronic Qualifiers: Viral hepatitis chronicity: unspecified (7) Hypertension Current Visit: Yes Status: Chronic Qualifiers: Hypertension type: unspecified Qualified Code(s): I10 - Essential (primary ) hypertension (8) Nicotine dependence Current Visit: Yes Status: Chronic Qualifiers: Nicotine product type: cigarettes Substance use status: in withdrawal Qualified Code(s): F17.213 - Nicotine dependence, cigarettes, with withdrawal Cleared for Admission [facility] - Detox or Rehab [facility] Level of Care: Medically Managed Detox Regimen/Protocol: Dizzion Urine Drug Screen - Test Device Lot number: [id number] Expiration date: 03/27/21 - Control Is test valid?: Yes - Results Drug screen NEGATIVE: No Urine drug screen results: THC-Marijuana, MARINE-Cocaine, BZO-Benzodiazepines Inpatient Rehab Admission - Rehab Decision to Admit Inpatient rehab admission?: No
[2019-09-06] MEDS ORDERED: MAG HYDROX/AL HYDROX/SIMETH 30 ML UNIT-DOSE CUP PO PRN (18:06)
[2019-09-06] MEDS ORDERED: NICOTINE POLACRILEX 2 MG GUM BUC PRN (18:06)
[2019-09-06] MEDS ORDERED: ACETAMINOPHEN 325 MG TABLET (FP) PO PRN ×2 (18:06)
[2019-09-06] MEDS ORDERED: hydrOXYzine PAMOATE 25 MG CAPSULE (FP) PO PRN (18:06)
[2019-09-06] MEDS ORDERED: MAGNESIUM CITRATE 300 ML BOTTLE PO PRN (18:06)
[2019-09-06] MEDS ORDERED: MELATONIN 5 MG TABLETS PO PRN (18:06)
[2019-09-06] MEDS ORDERED: MENTHOL/PHENOL 1 EACH UD MM PRN (18:06)
[2019-09-06] MEDS ORDERED: METHOCARBAMOL 500 MG TABLET PO PRN (18:06)
[2019-09-06] MEDS ORDERED: BISMUTH SUBSALICYLATE 524 MG/30 ML UD PO PRN (18:06)
[2019-09-06] MEDS ORDERED: MAGNESIUM HYDROX 2400MG/30ML ORAL SUSPENSION 30 ML CUP PO PRN (18:06)
[2019-09-06] MEDS ORDERED: IBUPROFEN 400 MG TABLET (FP) PO PRN (18:06)
[2019-09-06] MEDS: chlordiazePOXIDE HCL 25 MG CAPSULE PO PRN (19:31)
[2019-09-06] MEDS ORDERED: cloNIDine HCL 0.1 MG TABLET PO ONE (19:46)
--- NOTE | 2019-09-06 19:48 | PN ---
S Progress Note Note: Patient's blood pressure is B/P 156/109. Patient is asymptomatic Vital Signs Temperature 97.0 F L 09/06/19 17:57 Pulse Rate 101 H 09/06/19 17:57 Respiratory Rate 18 09/06/19 17:57 Blood Pressure 156/104 H 09/06/19 17:57 O2 Sat by Pulse Oximetry (%) Action: Clonidine 0.1mg tablet oral ordered
[2019-09-06] MEDS: chlordiazePOXIDE HCL 25 MG CAPSULE PO SCH (22:24)
[2019-09-06] MEDS: THIAMINE HCL 100 MG TABLET (FP) PO SCH (22:24)
[2019-09-07] MEDS: chlordiazePOXIDE HCL 25 MG CAPSULE PO SCH ×4 (05:25→22:20)
--- NOTE | 2019-09-07 09:42 | PN ---
S CIWA - CIWA Score Nausea/Vomitin-Mild Nausea/No Vomiting Muscle Tremors: 2 Anxiety: 2 Agitation: 0-Normal Activity Paroxysmal Sweats: 2 Orientation: 0-Oriented Tacttile Disturbances: 2-Mild Itch/Numbness/Burn Auditory Disturbances: 0-None Visual Disturbances: 1-Very Mild Sensitivity Headache: 1-Very Mild CIWA-Ar Total Score: 11 BHS Progress Note (SOAP) Subjective: Patient c/o of fatigue, chills, interrupted sleep Objective: 09/07/19 09:41 Vital Signs Temperature 98.2 F 09/07/19 09:05 Pulse Rate 79 09/07/19 09:05 Respiratory Rate 18 09/07/19 09:05 Blood Pressure 103/58 L 09/07/19 09:05 O2 Sat by Pulse Oximetry (%) labs pending Assessment: 09/07/19 09:41 Patient Aox3 no acute distress no adventitious breath sounds Full ROM no gait disturbance withdrawal sx Plan: increase fluids continue detox labs pending continue to monitor
[2019-09-07] MEDS: PRENATAL VITAMINS W/ FOLIC ACID TABLET (FP) PO SCH (10:26)
[2019-09-07] MEDS: NICOTINE 14 MG/24 HOURS TOPICAL PATCH TD SCH (10:26)
[2019-09-07] MEDS: LISINOPRIL 20 MG TABLET (FP) PO SCH (10:48)
[2019-09-07 10:50] LABS: HEMATOCRIT 36.3 % (35.4-49); MCH 28.4 pg (25.7-33.7); MCHC 32.9 g/dl (32.0-35.9); MEAN CELL VOLUME 86.3 fl (80-96); MEAN PLT VOLUME 8.9 fl (7.5-11.1); PLATELET COUNT 237 K/MM3 (134-434); RBC 4.21 M/mm3 (4.00-5.60); RDW 15.6 % (11.9-15.9); WHITE BLOOD COUNT 2.9 K/mm3 (4.0-10.0)
[2019-09-07 10:55] LABS: ALBUMIN 3.5 g/dl (3.4-5.0); BILIRUBIN,TOTAL 0.6 mg/dL (0.2-1); BLOOD UREA NITROGEN 20.4 mg/dL (7-18); CALCIUM 9.1 mg/dL (8.5-10.1); CREATININE 1.2 mg/dL (0.55-1.3); POTASSIUM 3.8 mmol/L (3.5-5.1); TOT PROT 7.2 g/dl (6.4-8.2)
--- NOTE | 2019-09-07 11:39 | EKG ---
Test Reason : Blood Pressure : / mmHG Vent. Rate : 085 BPM Atrial Rate : 085 BPM P-R Int : 130 ms QRS Dur : 068 ms QT Int : 384 ms P-R-T Axes : 077 056 052 degrees QTc Int : 456 ms NORMAL SINUS RHYTHM POSSIBLE LEFT ATRIAL ENLARGEMENT VOLTAGE CRITERIA FOR LEFT VENTRICULAR HYPERTROPHY WHEN COMPARED WITH ECG OF 31-OCT-2018 05:34, PREMATURE ATRIAL COMPLEXES ARE NO LONGER PRESENT NONSPECIFIC T WAVE ABNORMALITY NO LONGER EVIDENT IN LATERAL LEADS Confirmed by MITZI SIMON MD ([id number]) on 09/07/2019 11:39:44 AM Referred By: Confirmed By:MITZI SIMON MD
--- NOTE | 2019-09-07 17:55 | CONSULT ---
[facility] Psychiatric Consult - Data Date of interview: 09/07/19 Admission source: [facility] Identifying data: Revisit to [facility] and admission to [address] [place] [address] for this 58 y/o AA male self-referred for detoxification treatment. DM issues : alcohol, cannabis, cocaine, nicotine. Patient is , a father fo two, homeless ( [facility] resident), unemployed and supported on SSI benefits. Substance Abuse History: Discussed with the patient. Details in current [facility] report as follows : Smoking history: Current every day smoker. Have you smoked in the past 12 months: Yes. Aproximately how many cigarettes per day: 8. Cigars Per Day: 0. Hx Chewing Tobacco Use: No. Initiated information on smoking cessation: Yes. 'Breaking Loose' booklet given: 09/06/19. - Substance & Tx. History. Hx Alcohol Use: Yes. Hx Substance Use: Yes. Substance Use Type : Alcohol, Cocaine, Marijuana. Hx Substance Use Treatment: Yes ( [address]). - Substances abused. Crack. Substance route: Smoking. Frequency: 3-6 times per week. Amount used: $200-$300. Age of first use: 43. Date of last use: 09/05/19. Alcohol. Substance route: Oral. Frequency: 3- 6 times per week. Amount used: 1 pint of vodka. Age of first use: 13. Date of last use: 09/06/19 Medical History: Remarkable for hytertension and hepatitis C (untreated). Psychiatric History: Patient denies history of spychiatric hospitalizations, OPD care or suicide attempts. Physical/Sexual Abuse/Trauma History: Patient denies. Additional Comment: Urine drug screen results: THC-Marijuana, MARINE-Cocaine, BZO- Benzodiazepines. Noted. Mental Status Exam - Mental Status Exam Alert and Oriented to: Time, Place, Person Cognitive Function: Good Patient Appearance: Well Groomed Mood: Hopeful, Euthymic Affect: Appropriate, Normal Range Patient Behavior: Fatigued, Appropriate, Cooperative Speech Pattern: Clear, Appropriate Voice Loudness: Normal Thought Process: Intact, Goal Oriented Thought Disorder: Not Present Hallucinations: Denies Suicidal Ideation: Denies Homicidal Ideation: Denies Insight/Judgement: Poor Sleep: Well Appetite: Good Muscle strength/Tone: Normal Gait/Station: Normal Psychiatric Findings - Problem List ([place] 1, 2,3) (1) Alcohol dependence with withdrawal, uncomplicated Current Visit: Yes Status: Acute (2) Cocaine dependence Current Visit: Yes Status: Chronic Qualifiers: Substance use status: in withdrawal Qualified Code(s): F14.23 - Cocaine dependence with withdrawal (3) Marijuana dependence Current Visit: Yes Status: Chronic (4) Nicotine dependence Current Visit: Yes Status: Chronic Qualifiers: Nicotine product type: cigarettes Substance use status: in withdrawal Qualified Code(s): F17.213 - Nicotine dependence, cigarettes, with withdrawal - Initial Treatment Plan Initial Treatment Plan: Psychoeducation. Sleep hygiene. Detoxification. MAT services explained to patient. Support. AA meetings. Groups. Observation.
[2019-09-07] MEDS: THIAMINE HCL 100 MG TABLET (FP) PO SCH (22:20)
[2019-09-08] MEDS: chlordiazePOXIDE HCL 25 MG CAPSULE PO SCH ×4 (05:24→22:26)
[2019-09-08] MEDS: PRENATAL VITAMINS W/ FOLIC ACID TABLET (FP) PO SCH (10:49)
[2019-09-08] MEDS: NICOTINE 14 MG/24 HOURS TOPICAL PATCH TD SCH (10:50)
[2019-09-08] MEDS: LISINOPRIL 20 MG TABLET (FP) PO SCH (11:13)
--- NOTE | 2019-09-08 11:20 | PN ---
S CIWA - CIWA Score Nausea/Vomitin-No Nausea/No Vomiting Muscle Tremors: 2 Anxiety: 3 Agitation: 0-Normal Activity Paroxysmal Sweats: 3 Orientation: 0-Oriented Tacttile Disturbances: 0-None Auditory Disturbances: 0-None Visual Disturbances: 0-None Headache: 2-Mild CIWA-Ar Total Score: 10 BHS Progress Note (SOAP) Subjective: c/o anxiety, headache, sweats, and mild shakes. Objective: 09/08/19 11:21 Vital Signs 09/08/19 09/08/19 09/08/19 03:30 06:48 09:24 Temperature 96.4 F L 97.1 F L Pulse Rate 78 82 Respiratory 18 18 18 Rate Blood Pressure 108/76 114/82 Laboratory Last Values WBC 2.9 K/mm3 (4.0-10.0) L 09/07/19 07:45 RBC 4.21 M/mm3 (4.00-5.60) 09/07/19 07:45 Hgb 12.0 GM/dL (11.7-16.9) 09/07/19 07:45 Hct 36.3 % (35.4-49) 09/07/19 07:45 MCV 86.3 fl (80-96) 09/07/19 07:45 MCH 28.4 pg (25.7-33.7) 09/07/19 07:45 MCHC 32.9 g/dl (32.0-35.9) 09/07/19 07:45 RDW 15.6 % (11.9-15.9) 09/07/19 07:45 Plt Count 237 K/MM3 (134-434) 09/07/19 07:45 MPV 8.9 fl (7.5-11.1) 09/07/19 07:45 Sodium 139 mmol/L (136-145) 09/07/19 07:45 Potassium 3.8 mmol/L (3.5-5.1) 09/07/19 07:45 Chloride 104 mmol/L (98-107) 09/07/19 07:45 Carbon Dioxide 28 mmol/L (21-32) 09/07/19 07:45 Anion Gap 7 MMOL/L (8-16) L 09/07/19 07:45 BUN 20.4 mg/dL (7-18) H 09/07/19 07:45 Creatinine 1.2 mg/dL (0.55-1.3) 09/07/19 07:45 Est GFR (CKD-EPI)AfAm 75.72 09/07/19 07:45 Est GFR (CKD-EPI)NonAf 65.33 09/07/19 07:45 Random Glucose 91 mg/dL (74-106) 09/07/19 07:45 Calcium 9.1 mg/dL (8.5-10.1) 09/07/19 07:45 Total Bilirubin 0.6 mg/dL (0.2-1) 09/07/19 07:45 AST 61 U/L (15-37) H 09/07/19 07:45 ALT 49 U/L (13-61) 09/07/19 07:45 Alkaline Phosphatase 76 U/L (45-117) 09/07/19 07:45 Total Protein 7.2 g/dl (6.4-8.2) 09/07/19 07:45 Albumin 3.5 g/dl (3.4-5.0) 09/07/19 07:45 RPR Titer Nonreactive (NONREACTIVE) 09/07/19 07:45 Labs noted. Assessment: 09/08/19 11:21 AOX3, in no acute respiratory distress. Full ROM, ambulating in the unit. Withdrawal symptoms. Plan: continue detox.
[2019-09-08] MEDS: chlordiazePOXIDE HCL 25 MG CAPSULE PO PRN (20:25)
[2019-09-08] MEDS: THIAMINE HCL 100 MG TABLET (FP) PO SCH (22:26)
[2019-09-09] MEDS ORDERED: chlordiazePOXIDE HCL 10 MG CAPSULE PO PRN
[2019-09-09] MEDS: chlordiazePOXIDE HCL 10 MG CAPSULE PO SCH ×2 (05:09→10:47)
[2019-09-09] MEDS: PRENATAL VITAMINS W/ FOLIC ACID TABLET (FP) PO SCH (10:47)
[2019-09-09] MEDS: LISINOPRIL 20 MG TABLET (FP) PO SCH (10:47)
[2019-09-09] MEDS: NICOTINE 14 MG/24 HOURS TOPICAL PATCH TD SCH (10:47)
[2019-09-09] MEDS ORDERED: LORazepam 0.5 MG TABLET PO PRN (13:05)
--- NOTE | 2019-09-09 13:06 | PN ---
[facility] CIWA - CIWA Score Nausea/Vomitin-No Nausea/No Vomiting Muscle Tremors: 1-None Visible, but [place] Anxiety: 2 Agitation: 1-Slight > Activity Paroxysmal Sweats: 1-Minimal Palms Moist Orientation: 0-Oriented Tacttile Disturbances: 0-None Auditory Disturbances: 0-None Visual Disturbances: 1-Very Mild Sensitivity Headache: 0-None Present CIWA-Ar Total Score: 6 BHS Progress Note (SOAP) Subjective: 58 years old male admitted on 09/06/19 for alcohol withdrawal sx management treating with librium detox regimen patient requests ativan detox regimen discontinue librium replace with ativan requests nutrition supplement continue ensure begin megace 400mg po daily Objective: 09/09/19 13:11 Vital Signs Temperature 98.1 F 09/09/19 09:10 Pulse Rate 75 09/09/19 09:10 Respiratory Rate 18 09/09/19 09:10 Blood Pressure 96/66 09/09/19 09:10 O2 Sat by Pulse Oximetry (%) Laboratory Last Values WBC 2.9 K/mm3 (4.0-10.0) L 09/07/19 07:45 RBC 4.21 M/mm3 (4.00-5.60) 09/07/19 07:45 Hgb 12.0 GM/dL (11.7-16.9) 09/07/19 07:45 Hct 36.3 % (35.4-49) 09/07/19 07:45 MCV 86.3 fl (80-96) 09/07/19 07:45 MCH 28.4 pg (25.7-33.7) 09/07/19 07:45 MCHC 32.9 g/dl (32.0-35.9) 09/07/19 07:45 RDW 15.6 % (11.9-15.9) 09/07/19 07:45 Plt Count 237 K/MM3 (134-434) 09/07/19 07:45 MPV 8.9 fl (7.5-11.1) 09/07/19 07:45 Sodium 139 mmol/L (136-145) 09/07/19 07:45 Potassium 3.8 mmol/L (3.5-5.1) 09/07/19 07:45 Chloride 104 mmol/L (98-107) 09/07/19 07:45 Carbon Dioxide 28 mmol/L (21-32) 09/07/19 07:45 Anion Gap 7 MMOL/L (8-16) L 09/07/19 07:45 BUN 20.4 mg/dL (7-18) H 09/07/19 07:45 Creatinine 1.2 mg/dL (0.55-1.3) 09/07/19 07:45 Est GFR (CKD-EPI)AfAm 75.72 09/07/19 07:45 Est GFR (CKD-EPI)NonAf 65.33 09/07/19 07:45 Random Glucose 91 mg/dL (74-106) 09/07/19 07:45 Calcium 9.1 mg/dL (8.5-10.1) 09/07/19 07:45 Total Bilirubin 0.6 mg/dL (0.2-1) 09/07/19 07:45 AST 61 U/L (15-37) H 09/07/19 07:45 ALT 49 U/L (13-61) 09/07/19 07:45 Alkaline Phosphatase 76 U/L (45-117) 09/07/19 07:45 Total Protein 7.2 g/dl (6.4-8.2) 09/07/19 07:45 Albumin 3.5 g/dl (3.4-5.0) 09/07/19 07:45 RPR Titer Nonreactive (NONREACTIVE) 09/07/19 07:45 lab noted low wbc 09/09/19 13:13 repeat 09/10/19 Assessment: 09/09/19 13:13 alcohol withdrawal Plan: ativan regimen
[2019-09-09] MEDS ORDERED: LORazepam 0.5 MG TABLET PO SCH (13:15)
[2019-09-09] MEDS: LORazepam 0.5 MG TABLET PO SCH ×2 (14:06→22:14)
[2019-09-09] MEDS: THIAMINE HCL 100 MG TABLET (FP) PO SCH (22:14)
[2019-09-10] MEDS ORDERED: chlordiazePOXIDE HCL 10 MG CAPSULE PO SCH (05:00)
[2019-09-10] MEDS: LORazepam 0.5 MG TABLET PO SCH ×2 (06:01→17:02)
[2019-09-10] MEDS: MEGESTROL ACETATE 400 MG/10 ML UNIT DOSE CUP PO SCH (06:51)
[2019-09-10] MEDS ORDERED: LISINOPRIL 10 MG TABLET (FP) PO SCH (10:00)
[2019-09-10] MEDS: NICOTINE 14 MG/24 HOURS TOPICAL PATCH TD SCH (10:11)
[2019-09-10] MEDS: PRENATAL VITAMINS W/ FOLIC ACID TABLET (FP) PO SCH (10:11)
--- NOTE | 2019-09-10 11:27 | PN ---
S CIWA - CIWA Score Nausea/Vomitin-No Nausea/No Vomiting Muscle Tremors: 1-None Visible, but [place] Anxiety: 1-Mildly Anxious Agitation: 0-Normal Activity Paroxysmal Sweats: No Perspiration Orientation: 0-Oriented Tacttile Disturbances: 0-None Auditory Disturbances: 0-None Visual Disturbances: 0-None Headache: 0-None Present CIWA-Ar Total Score: 2 BHS Progress Note (SOAP) Subjective: 58 years old male admitted on 09/06/19 for alcohol withdrawal sx management treating with ativan detox regimen feeling better today slept through the night less tremor Objective: 09/10/19 11:26 Vital Signs Temperature 97.2 F L 09/10/19 09:22 Pulse Rate 62 09/10/19 09:22 Respiratory Rate 18 09/10/19 09:22 Blood Pressure 138/81 09/10/19 09:22 O2 Sat by Pulse Oximetry (%) Laboratory Last Values WBC 2.9 K/mm3 (4.0-10.0) L 09/07/19 07:45 RBC 4.21 M/mm3 (4.00-5.60) 09/07/19 07:45 Hgb 12.0 GM/dL (11.7-16.9) 09/07/19 07:45 Hct 36.3 % (35.4-49) 09/07/19 07:45 MCV 86.3 fl (80-96) 09/07/19 07:45 MCH 28.4 pg (25.7-33.7) 09/07/19 07:45 MCHC 32.9 g/dl (32.0-35.9) 09/07/19 07:45 RDW 15.6 % (11.9-15.9) 09/07/19 07:45 Plt Count 237 K/MM3 (134-434) 09/07/19 07:45 MPV 8.9 fl (7.5-11.1) 09/07/19 07:45 Sodium 139 mmol/L (136-145) 09/07/19 07:45 Potassium 3.8 mmol/L (3.5-5.1) 09/07/19 07:45 Chloride 104 mmol/L (98-107) 09/07/19 07:45 Carbon Dioxide 28 mmol/L (21-32) 09/07/19 07:45 Anion Gap 7 MMOL/L (8-16) L 09/07/19 07:45 BUN 20.4 mg/dL (7-18) H 09/07/19 07:45 Creatinine 1.2 mg/dL (0.55-1.3) 09/07/19 07:45 Est GFR (CKD-EPI)AfAm 75.72 09/07/19 07:45 Est GFR (CKD-EPI)NonAf 65.33 09/07/19 07:45 Random Glucose 91 mg/dL (74-106) 09/07/19 07:45 Calcium 9.1 mg/dL (8.5-10.1) 09/07/19 07:45 Total Bilirubin 0.6 mg/dL (0.2-1) 09/07/19 07:45 AST 61 U/L (15-37) H 09/07/19 07:45 ALT 49 U/L (13-61) 09/07/19 07:45 Alkaline Phosphatase 76 U/L (45-117) 09/07/19 07:45 Total Protein 7.2 g/dl (6.4-8.2) 09/07/19 07:45 Albumin 3.5 g/dl (3.4-5.0) 09/07/19 07:45 RPR Titer Nonreactive (NONREACTIVE) 09/07/19 07:45 lab noted 09/10/19 11:27 patient was informed by his primary care provider that the risks of low wbc recommend the patient seeking hemotology for consultation possible required referral from primary care provider encourage the patient to engage conversation about low wbc with the primary care provider Assessment: 09/10/19 11:34 alcohol withdrawal Plan: ativan regimen
[2019-09-10] MEDS: THIAMINE HCL 100 MG TABLET (FP) PO SCH (23:10)
[2019-09-11] MEDS ORDERED: chlordiazePOXIDE HCL 10 MG CAPSULE PO ONE (05:00)
[2019-09-11] MEDS ORDERED: LORazepam 0.5 MG TABLET PO ONE (05:00)
[2019-09-11] MEDS: MEGESTROL ACETATE 400 MG/10 ML UNIT DOSE CUP PO SCH (06:25)
[2019-09-11] MEDS ORDERED: amLODIPine BESYLATE 10 MG TABLET (FP) PO SCH (10:00)
[2019-09-11] MEDS: NICOTINE 14 MG/24 HOURS TOPICAL PATCH TD SCH (10:09)
[2019-09-11] MEDS: PRENATAL VITAMINS W/ FOLIC ACID TABLET (FP) PO SCH (10:09)
--- NOTE | 2019-09-11 12:43 | DS ---
[facility] Detox Discharge Summary Admission Date: 09/06/19 Discharge Date: 09/11/19 - History Present History: Alcohol Dependence Additional Comments: 58 years old male admitted on 09/06/19 for alcohol withdrawal sx management treated wt ativan detox regimen patient has completed ativan detox regimen toelrated well alert oriented x 3 cardiac s1s2 regular rate rhythm ekg indicated possible left atrial enlargement respiratory clear lungs bilaterally on auscultation extremities full range of motion - Physical Exam Results Vital Signs: Vital Signs Temperature 96.7 F L 09/11/19 09:09 Pulse Rate 76 09/11/19 09:09 Respiratory Rate 16 09/11/19 09:09 Blood Pressure 130/84 09/11/19 09:09 O2 Sat by Pulse Oximetry (%) Pertinent Admission Physical Exam Findings: alcohol withdrawal Laboratory Last Values WBC 2.9 K/mm3 (4.0-10.0) L 09/07/19 07:45 RBC 4.21 M/mm3 (4.00-5.60) 09/07/19 07:45 Hgb 12.0 GM/dL (11.7-16.9) 09/07/19 07:45 Hct 36.3 % (35.4-49) 09/07/19 07:45 MCV 86.3 fl (80-96) 09/07/19 07:45 MCH 28.4 pg (25.7-33.7) 09/07/19 07:45 MCHC 32.9 g/dl (32.0-35.9) 09/07/19 07:45 RDW 15.6 % (11.9-15.9) 09/07/19 07:45 Plt Count 237 K/MM3 (134-434) 09/07/19 07:45 MPV 8.9 fl (7.5-11.1) 09/07/19 07:45 Sodium 139 mmol/L (136-145) 09/07/19 07:45 Potassium 3.8 mmol/L (3.5-5.1) 09/07/19 07:45 Chloride 104 mmol/L (98-107) 09/07/19 07:45 Carbon Dioxide 28 mmol/L (21-32) 09/07/19 07:45 Anion Gap 7 MMOL/L (8-16) L 09/07/19 07:45 BUN 20.4 mg/dL (7-18) H 09/07/19 07:45 Creatinine 1.2 mg/dL (0.55-1.3) 09/07/19 07:45 Est GFR (CKD-EPI)AfAm 75.72 09/07/19 07:45 Est GFR (CKD-EPI)NonAf 65.33 09/07/19 07:45 Random Glucose 91 mg/dL (74-106) 09/07/19 07:45 Calcium 9.1 mg/dL (8.5-10.1) 09/07/19 07:45 Total Bilirubin 0.6 mg/dL (0.2-1) 09/07/19 07:45 AST 61 U/L (15-37) H 09/07/19 07:45 ALT 49 U/L (13-61) 09/07/19 07:45 Alkaline Phosphatase 76 U/L (45-117) 09/07/19 07:45 Total Protein 7.2 g/dl (6.4-8.2) 09/07/19 07:45 Albumin 3.5 g/dl (3.4-5.0) 09/07/19 07:45 RPR Titer Nonreactive (NONREACTIVE) 09/07/19 07:45 lab noted encourage the patient reach out to primary care provider or community health services (urgent care, [facility], [facility] etc) for low wbc follow up - Treatment Hospital Course: Detox Protocol Followed, Detoxed Safely, Responded well, Discharged Condition Good, Rehab Referral Accepted Patient has Accepted a Rehab Referral to: community support approach - Medication Discharge Medications: Ambulatory Orders Lisinopril [Prinivil] 20 mg PO DAILY 10/27/18 Clonazepam [Klonopin] 2 mg PO TID 09/06/19 - Diagnosis (1) Alcohol dependence with withdrawal, uncomplicated Current Visit: Yes Status: Acute (2) Nicotine dependence Current Visit: Yes Status: Chronic Qualifiers: Nicotine product type: cigarettes Substance use status: in withdrawal Qualified Code(s): F17.213 - Nicotine dependence, cigarettes, with withdrawal (3) Essential hypertension Current Visit: Yes Status: Chronic (4) Weight loss Current Visit: Yes Status: Acute (5) Hepatitis C Current Visit: Yes Status: Chronic Qualifiers: Viral hepatitis chronicity: carrier Qualified Code(s): B18.2 - Chronic viral hepatitis C (6) Hypertension Current Visit: Yes Status: Chronic Qualifiers: Hypertension type: unspecified Qualified Code(s): I10 - Essential (primary ) hypertension - AMA Did Patient Leave Against Medical Advice: No CIWA Score - CIWA Score Nausea/Vomitin-No Nausea/No Vomiting Muscle Tremors: 1-None Visible, but [place] Anxiety: 0-No Anxiety, at Ease Agitation: 0-Normal Activity Paroxysmal Sweats: No Perspiration Orientation: 0-Oriented Tacttile Disturbances: 0-None Auditory Disturbances: 0-None Visual Disturbances: 0-None Headache: 0-None Present CIWA-Ar Total Score: 1
[2019-09-11 13:20] VITALS: BP 117/83; PULSE 103; TEMP 98.3
== END 2019-09-11 14:55 | disposition home or self-care (01) | DRG 774 ==
LOC: YASAS 10:18 → Y3N 17:59
PROVIDERS: ADMIT Allergy & Immunology; ATTEND Allergy & Immunology
PROC: HZ2ZZZZ Detoxification Services for Substance Abuse Treatment (ICD-10-PCS; principal; 2019-09-06)
DX: F10.230 Alcohol dependence with withdrawal, uncomplicated (principal); F14.20 Cocaine dependence, uncomplicated; F12.20 Cannabis dependence, uncomplicated; F17.213 Nicotine dependence, cigarettes, with withdrawal; F32.9 Major depressive disorder, single episode, unspecified; I10 Essential (primary) hypertension; R76.11 Nonspecific reaction to tuberculin skin test without active tuberculosis; B18.2 Chronic viral hepatitis C; R00.0 Tachycardia, unspecified; J42 Unspecified chronic bronchitis; Z91.010 Allergy to peanuts; Z91.14 Patient's other noncompliance with medication regimen
CPT/HCPCS: 36415; 80053; 85027; 86593; 93005; 93010; J0735

== ENCOUNTER 2019-10-11 08:43 | Inpatient (IN) | payer OTHER ==
[2019-10-11 12:47] VITALS: BMI 16.0
--- NOTE | 2019-10-11 13:14 | HP ---
CIWA Score - Admission Criteria [facility] Guidelines: Admission for Medically Managed Detox: Requires at least one of the followin. CIWA greater than 12 2. Seizures within the past 24 hours 3. Delirium tremens within the past 24 hours 4. Hallucinations within the past 24 hours 5. Acute intervention needed for co occurring medical disorder 6. Acute intervention needed for co occurring psychiatric disorder 7. Severe withdrawal that cannot be handled at a lower level of care (continued vomiting, continued diarrhea, abnormal vital signs) requiring intravenous medication and/or fluids 8. Admitting History and Physical - Admission Chief Complaint: Mr. Garcia is a 58 yo gentleman who presents to [facility] requesting admission to rehab for alcohol and crack use. History of Present Illness: Mr. Garcia is a 58 yo gentleman who presents to [facility] requesting admission to rehab for alcohol and crack use. He as here in August 2019. He wanted to go to rehab after that stay. PMH: Hep C, untreated, HTN, low WBC Psych: anxiety, depression, no recent medication Surgical: none SOC: undomiciled Substance use history Alcohol, first use at the age of 15 y, last use 2 days ago, one pint Vodka daily , no blackouts or seizures. Crack: 15 bags several days per week, smokes, last use 2 days ago cigs: 6 per day Pt meets criteria for inpt rehab. History Source: Patient Limitations to Obtaining History: No Limitations - Past Medical History Cardiovascular: Yes: HTN Hepatobiliary: Yes: Hepatitis C Heme/Onc: Yes: Other (low WBC) - Smoking History Smoking history: Current every day smoker Have you smoked in the past 12 months: Yes Aproximately how many cigarettes per day: 6 - Alcohol/Substance Use Hx Alcohol Use: Yes Admission [facility] Allergies/Adverse Reactions: Allergies Allergy/AdvReac Type Severity Reaction Status Date / Time peanut Allergy Severe Swelling Verified 10/11/19 12:39 peanut butter Allergy Severe Swelling Uncoded 10/11/19 12:39 - Ebola screening Have you traveled outside of the country in the last 21 days: No Have you had contact with anyone from an Ebola affected area: No Have you been sick,other than usual withdrawal symptoms: No Do you have a fever: No - Review of Systems Constitutional: No Symptoms Reported, Unintentional Wgt. Loss (15 lbs loss in the past one month) EENT: reports: Blurred Vision (wears glasses, does not have with him today) Respiratory: reports: No Symptoms reported Cardiac: reports: No Symptoms Reported GI: reports: No Symptoms Reported : reports: No Symptoms Reported Musculoskeletal: reports: No Symptoms Reported Integumentary: reports: Dryness Neuro: reports: No Symptoms reported Endocrine: reports: No Symptoms Reported Hematology: reports: No Symptoms Reported Psychiatric: reports: Anxious, Depressed (on no current medication. No SI/HI) Patient History - Patient Medical History Hx Anemia: No Hx Asthma: No Hx Chronic Obstructive Pulmonary Disease (COPD): No Hx Cancer: No Hx Cardiac Disorders: No Hx Congestive Heart Failure: No Hx Hypertension: Yes (LAST TOOK MED. 08/2019) Hx Hypercholesterolemia: No Hx Pacemaker: No HX Cerebrovascular Accident: No Hx Seizures: No Hx Dementia: No Hx Diabetes: No Hx Gastrointestinal Disorders: No Hx Liver Disease: No Hx Genitourinary Disorders: No Hx Sexually Transmitted Disorders: No Hx Renal Disease (ESRD): No Hx Thyroid Disease: No Hx Human Immunodeficiency Virus (HIV): No (December 2018) Hx Hepatitis C: Yes (not treated) Hx Depression: Yes Hx Suicide Attempt: No Hx Bipolar Disorder: No Hx Schizophrenia: No - Patient Surgical History Past Surgical History: No Hx Neurologic Surgery: No Hx Cataract Extraction: No Hx Cardiac Surgery: No Hx Lung Surgery: No Hx Breast Surgery: No Hx Breast Biopsy: No Hx Abdominal Surgery: No Hx Appendectomy: No Hx Cholecystectomy: No Hx Genitourinary Surgery: No Hx Section: No Hx Orthopedic Surgery: No Anesthesia Reaction: No - PPD History Previous Implant?: Yes Documented Results: Negative w/proof Implanted On Prior R Admission?: Yes Date: 10/29/18 Results: Negative - Smoking Cessation Smoking history: Current every day smoker Have you smoked in the past 12 months: Yes Aproximately how many cigarettes per day: 6 Cigars Per Day: 0 Hx Chewing Tobacco Use: No Initiated information on smoking cessation: Yes 'Breaking Loose' booklet given: 10/11/19 - Substances abused Benzodiazepine (Klonopin) Substance route: Oral Frequency: 3-6 times per week Amount used: 1 pint Age of first use: 15 Date of last use: 10/08/19 [id number] Substance route: Smoking Frequency: 3-6 times per week Amount used: 15 bags Age of first use: 38 Date of last use: 10/08/19 Marijuana/Hashish Substance route: Smoking Amount used: couple pulls per month Age of first use: 12 Date of last use: 10/09/19 Admission Physical Exam [facility] - Vital Signs Vital Signs: Vital Signs - 24 hr 10/11/19 12:41 Temperature 97.0 F L Pulse Rate 65 Respiratory 18 Rate Blood Pressure 157/104 H - Physical General Appearance: Yes: No Apparent Distress, Thin HEENTM: Yes: Hearing grossly Normal, Normal Voice Respiratory: Yes: Lungs Clear, Normal Breath Sounds Neck: Yes: Within Normal Limits Breast: Yes: Breast Exam Deferred Cardiology: Yes: Regular Rate, S1, S2 Abdominal: Yes: Normal Bowel Sounds, Non Tender, Flat, Soft Back: Yes: Normal Inspection Musculoskeletal: Yes: Within Normal Limits Extremities: Yes: Within Normal Limits Neurological: Yes: Alert, Normal Mood/Affect Integumentary: Yes: Within Normal Limits Cleared for Admission [facility] - Detox or Rehab [facility] Level of Care: Medically Supervised Breathalyzer - Breathalyzer Breathalyzer: 0 Urine Drug Screen - Test Device Lot number: [id number] Expiration date: 07/23/21 - Control Is test valid?: Yes - Results Drug screen NEGATIVE: No Urine drug screen results: MARINE-Cocaine Inpatient Rehab Admission - Rehab Decision to Admit Inpatient rehab admission?: Yes - Initial Determination Are CD services needed?: Yes Free of communicable disease: Yes Not in need of hospitalization: Yes - Rehab Admission Criteria Previous failed treatment: Yes Poor recovery environment: Yes Comorbidities: Yes Lacks judgement: Yes Patient is meeting Inpatient Rehab admission criteria:: Yes
[2019-10-11] MEDS ORDERED: LOPERAMIDE HCL 2 MG CAPSULE PO PRN (13:19)
[2019-10-11] MEDS ORDERED: MAGNESIUM CITRATE 300 ML BOTTLE PO PRN (13:19)
[2019-10-11] MEDS ORDERED: P-EPHED 60MG/TRIPROLIDI 2.5MG TABLET PO PRN (13:19)
[2019-10-11] MEDS ORDERED: MAGNESIUM HYDROX 2400MG/30ML ORAL SUSPENSION 30 ML CUP PO PRN (13:19)
[2019-10-11] MEDS ORDERED: IBUPROFEN 400 MG TABLET (FP) PO PRN (13:19)
[2019-10-11] MEDS ORDERED: ACETAMINOPHEN 325 MG TABLET (FP) PO PRN (13:19)
[2019-10-11] MEDS ORDERED: guaiFENesin 200 MG/10 ML 10 ML UNIT-DOSE CUPS PO PRN (13:19)
[2019-10-11] MEDS ORDERED: MENTHOL/PHENOL 1 EACH UD MM PRN (13:19)
[2019-10-11] MEDS ORDERED: MAG HYDROX/AL HYDROX/SIMETH 30 ML UNIT-DOSE CUP PO PRN (13:19)
[2019-10-11] MEDS ORDERED: amLODIPine BESYLATE 10 MG TABLET (FP) PO ONE (13:30)
[2019-10-11] MEDS: NICOTINE 14 MG/24 HOURS TOPICAL PATCH TD SCH (14:41)
[2019-10-11 17:23] LABS: HEMATOCRIT 35.8 % (35.4-49); HEMOGLOBIN 11.9 GM/dL (11.7-16.9); MCH 29.1 pg (25.7-33.7); MCHC 33.2 g/dl (32.0-35.9); MEAN CELL VOLUME 87.5 fl (80-96); MEAN PLT VOLUME 8.7 fl (7.5-11.1); PLATELET COUNT 265 K/MM3 (134-434); RBC 4.09 M/mm3 (4.00-5.60); RDW 15.9 % (11.9-15.9); WHITE BLOOD COUNT 3.7 K/mm3 (4.0-10.0)
[2019-10-11 17:37] LABS: ALBUMIN 3.8 g/dl (3.4-5.0); BILIRUBIN,TOTAL 0.4 mg/dL (0.2-1); BLOOD UREA NITROGEN 10.7 mg/dL (7-18); CALCIUM 9.2 mg/dL (8.5-10.1); CREATININE 1.1 mg/dL (0.55-1.3); POTASSIUM 3.9 mmol/L (3.5-5.1); TOT PROT 7.7 g/dl (6.4-8.2)
[2019-10-11] MEDS: THIAMINE HCL 100 MG TABLET (FP) PO SCH (21:19)
[2019-10-11] MEDS: MELATONIN 5 MG TABLETS PO PRN (21:19)
[2019-10-12] MEDS: PRENATAL VITAMINS W/ FOLIC ACID TABLET (FP) PO SCH (10:42)
[2019-10-12] MEDS: NICOTINE 14 MG/24 HOURS TOPICAL PATCH TD SCH (10:42)
[2019-10-12] MEDS: amLODIPine BESYLATE 10 MG TABLET (FP) PO SCH (10:42)
--- NOTE | 2019-10-12 12:07 | PN ---
S Progress Note Note: Pt is a 58 y/o male with a hx of DM-alcohol,crack admitted to rehab yesterday through [facility]. PMHx:HTN, Hep C(untreated). Psych Hx:Depression, Anxiety. Pt requests psych re-evaluation for Depression/med. Vital Signs - 24 hr 10/11/19 10/11/19 10/12/19 12:41 14:48 03:30 Temperature 97.0 F L 97.6 F Pulse Rate 65 62 Respiratory 18 18 18 Rate Blood Pressure 157/104 H 131/84 10/12/19 07:55 Temperature 98.0 F Pulse Rate 77 Respiratory 18 Rate Blood Pressure 126/83 Laboratory Tests 10/11/19 10/11/19 10/11/19 13:45 13:45 13:45 WBC 3.7 L RBC 4.09 Hgb 11.9 Hct 35.8 MCV 87.5 MCH 29.1 MCHC 33.2 RDW 15.9 Plt Count 265 MPV 8.7 Sodium 139 Potassium 3.9 Chloride 106 Carbon Dioxide 28 Anion Gap 6 L BUN 10.7 Creatinine 1.1 Est GFR (CKD-EPI)AfAm 84.12 Est GFR (CKD-EPI)NonAf 72.58 Random Glucose 63 L Calcium 9.2 Total Bilirubin 0.4 AST 24 ALT 30 Alkaline Phosphatase 80 Total Protein 7.7 Albumin 3.8 RPR Titer Nonreactive Alert o x 3,denies s/h/i nad oob ambulating with steady gait extremities/skin;no edema;skin intact. A/P DM Weight loss-BMI 16.0 new rehab pt Maintain safety increase po fluids Ensure plus 1 can po TID
--- NOTE | 2019-10-12 13:15 | CONSULT ---
[facility] Psychiatric Consult - Data Date of interview: 10/12/19 Admission source: [facility] Identifying data: Patient is a 58 year old single black male, father of two, unemployed, homeless, and is supported by [facility]. This is one of multiple admissions for patient. Patient admitted to for alcohol and cocaine dependence. Substance Abuse History: Smoking Cessation. Smoking history: Current every day smoker. Have you smoked in the past 12 months: Yes. Aproximately how many cigarettes per day: 6. Cigars Per Day: 0. Hx Chewing Tobacco Use: No. Initiated information on smoking cessation: Yes. 'Breaking Loose' booklet given : 10/11/19. - Substances abused. Benzodiazepine (Klonopin). Substance route: Oral. Frequency: 3-6 times per week. Amount used: 1 pint. Age of first use: 15. Date of last use: 10/08/19. Wdsy-zjr-Waezvzt. Substance route: Smoking. Frequency: 3-6 times per week. Amount used: 15 bags. Age of first use: 38. Date of last use: 10/08/19. Marijuana/Hashish. Substance route: Smoking. Amount used: couple pulls per month. Age of first use: 12. Date of last use: 10/09/19 Medical History: Hep C, untreated HTN, low WBC Psychiatric History: Patient's first psychiatric contact was approximately ten years ago at a private clinic. States he saw the psychiatrist due to his history of depression and was prescribed psychotropic medications. After discontinuing treatment he saw psychiatrist again a few years ago. Patient unable to recall medications prescribed. Patient denies history psychiatric hospitalization and suicide attempt. Stated to fiction writer that he requested the consultation because he only wanted to speak to someone. Patient reports family and financial stressors as the reason of his substance abuse. At present patient reports feeling sad and lethargic. Mr. Garcia denies thoughts or urges to hurt self or others. Physical/Sexual Abuse/Trauma History: denies. Mental Status Exam - Mental Status Exam Alert and Oriented to: Time, Place, Person Cognitive Function: Good Patient Appearance: Well Groomed Mood: Withdrawn Affect: Mood Congruent Patient Behavior: Fatigued, Cooperative Speech Pattern: Clear Voice Loudness: Mildly Soft/Quiet Thought Process: Intact, Goal Oriented Thought Disorder: Not Present Hallucinations: Denies Suicidal Ideation: Denies Homicidal Ideation: Denies Insight/Judgement: Poor Sleep: Fair Appetite: Fair Muscle strength/Tone: Normal Gait/Station: Normal Psychiatric Findings - Problem List ([place] 1, 2,3) (1) Alcohol use disorder Current Visit: Yes Status: Acute (2) Cocaine dependence Current Visit: Yes Status: Chronic Qualifiers: Substance use status: in withdrawal Qualified Code(s): F14.23 - Cocaine dependence with withdrawal (3) Substance induced mood disorder Current Visit: Yes Status: Acute - Initial Treatment Plan Initial Treatment Plan: Psychoeducation provided. Rehab in progress. Observation.
[2019-10-12] MEDS: THIAMINE HCL 100 MG TABLET (FP) PO SCH (21:51)
[2019-10-13 09:39] LABS: PH,URINE 7.5 (5.0-8.0); URINE APPEARANCE CLOUDY; URINE BILIRUBIN NEGATIVE (NEGATIVE); URINE COLOR YELLOW; URINE GLUCOSE (UA) NEGATIVE (NEGATIVE); URINE KETONE NEGATIVE (NEGATIVE); URINE LEUK ESTERASE NEGATIVE (NEGATIVE); URINE NITRITE NEGATIVE (NEGATIVE); URINE PROTEIN NEGATIVE (NEGATIVE); URINE UROBILINOGEN 0.2 mg/dL (0.2-1.0)
[2019-10-13] MEDS: PRENATAL VITAMINS W/ FOLIC ACID TABLET (FP) PO SCH (10:49)
[2019-10-13] MEDS: NICOTINE 14 MG/24 HOURS TOPICAL PATCH TD SCH (10:49)
[2019-10-13] MEDS: amLODIPine BESYLATE 10 MG TABLET (FP) PO SCH (10:49)
[2019-10-13] MEDS: MELATONIN 5 MG TABLETS PO PRN (21:08)
[2019-10-13] MEDS: THIAMINE HCL 100 MG TABLET (FP) PO SCH (21:08)
[2019-10-14] MEDS: PRENATAL VITAMINS W/ FOLIC ACID TABLET (FP) PO SCH (10:21)
[2019-10-14] MEDS: amLODIPine BESYLATE 10 MG TABLET (FP) PO SCH (10:21)
[2019-10-14] MEDS: NICOTINE 14 MG/24 HOURS TOPICAL PATCH TD SCH (10:21)
[2019-10-14] MEDS: THIAMINE HCL 100 MG TABLET (FP) PO SCH (21:30)
[2019-10-14] MEDS: MELATONIN 5 MG TABLETS PO PRN (21:30)
[2019-10-15] MEDS: PRENATAL VITAMINS W/ FOLIC ACID TABLET (FP) PO SCH (10:29)
[2019-10-15] MEDS: NICOTINE 14 MG/24 HOURS TOPICAL PATCH TD SCH (10:29)
[2019-10-15] MEDS: amLODIPine BESYLATE 10 MG TABLET (FP) PO SCH (10:29)
[2019-10-15] MEDS: MELATONIN 5 MG TABLETS PO PRN (21:06)
[2019-10-15] MEDS: THIAMINE HCL 100 MG TABLET (FP) PO SCH (21:06)
[2019-10-16] MEDS: NICOTINE 14 MG/24 HOURS TOPICAL PATCH TD SCH (11:00)
[2019-10-16] MEDS: PRENATAL VITAMINS W/ FOLIC ACID TABLET (FP) PO SCH (11:00)
[2019-10-16] MEDS: amLODIPine BESYLATE 10 MG TABLET (FP) PO SCH (11:00)
[2019-10-16] MEDS: THIAMINE HCL 100 MG TABLET (FP) PO SCH (21:07)
[2019-10-16] MEDS: MELATONIN 5 MG TABLETS PO PRN (21:07)
[2019-10-17] MEDS: NICOTINE 14 MG/24 HOURS TOPICAL PATCH TD SCH (11:05)
[2019-10-17] MEDS: amLODIPine BESYLATE 10 MG TABLET (FP) PO SCH (11:05)
[2019-10-17] MEDS: PRENATAL VITAMINS W/ FOLIC ACID TABLET (FP) PO SCH (11:05)
[2019-10-17] MEDS: THIAMINE HCL 100 MG TABLET (FP) PO SCH (21:58)
[2019-10-17] MEDS: MELATONIN 5 MG TABLETS PO PRN (21:58)
[2019-10-18] MEDS: amLODIPine BESYLATE 10 MG TABLET (FP) PO SCH (10:51)
[2019-10-18] MEDS: PRENATAL VITAMINS W/ FOLIC ACID TABLET (FP) PO SCH (10:52)
[2019-10-18] MEDS: NICOTINE 14 MG/24 HOURS TOPICAL PATCH TD SCH (10:52)
[2019-10-18] MEDS ORDERED: hydrOXYzine PAMOATE 25 MG CAPSULE (FP) PO PRN (13:58)
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
[2019-10-18] MEDS: MELATONIN 5 MG TABLETS PO PRN (21:05)
[2019-10-18] MEDS: THIAMINE HCL 100 MG TABLET (FP) PO SCH (21:05)
[2019-10-19] MEDS: PRENATAL VITAMINS W/ FOLIC ACID TABLET (FP) PO SCH (10:37)
[2019-10-19] MEDS: amLODIPine BESYLATE 10 MG TABLET (FP) PO SCH (10:37)
[2019-10-19] MEDS: NICOTINE 14 MG/24 HOURS TOPICAL PATCH TD SCH (10:38)
[2019-10-19] MEDS ORDERED: COLLOIDAL OATMEAL 1 BAR EACH TP PRN (12:26)
[2019-10-19] MEDS ORDERED: MINERAL OIL/PETROLAT/WATER TOPICAL CREAM 113 GM JAR TP SCH (12:30)
[2019-10-19] MEDS: THIAMINE HCL 100 MG TABLET (FP) PO SCH (21:04)
[2019-10-19] MEDS: MELATONIN 5 MG TABLETS PO PRN (21:04)
[2019-10-20] MEDS: amLODIPine BESYLATE 10 MG TABLET (FP) PO SCH (10:45)
[2019-10-20] MEDS: PRENATAL VITAMINS W/ FOLIC ACID TABLET (FP) PO SCH (10:45)
[2019-10-20] MEDS: NICOTINE 14 MG/24 HOURS TOPICAL PATCH TD SCH (10:45)
[2019-10-20] MEDS: MELATONIN 5 MG TABLETS PO PRN (21:09)
[2019-10-20] MEDS: THIAMINE HCL 100 MG TABLET (FP) PO SCH (21:09)
[2019-10-21] MEDS: NICOTINE 14 MG/24 HOURS TOPICAL PATCH TD SCH (10:20)
[2019-10-21] MEDS: PRENATAL VITAMINS W/ FOLIC ACID TABLET (FP) PO SCH (10:20)
[2019-10-21] MEDS: amLODIPine BESYLATE 10 MG TABLET (FP) PO SCH (10:20)
[2019-10-21] MEDS: MELATONIN 5 MG TABLETS PO PRN (22:13)
[2019-10-21] MEDS: THIAMINE HCL 100 MG TABLET (FP) PO SCH (22:13)
[2019-10-22] MEDS: PRENATAL VITAMINS W/ FOLIC ACID TABLET (FP) PO SCH (10:51)
[2019-10-22] MEDS: amLODIPine BESYLATE 10 MG TABLET (FP) PO SCH (10:51)
[2019-10-22] MEDS: NICOTINE 14 MG/24 HOURS TOPICAL PATCH TD SCH (10:52)
[2019-10-22] MEDS: MELATONIN 5 MG TABLETS PO PRN (21:48)
[2019-10-22] MEDS: THIAMINE HCL 100 MG TABLET (FP) PO SCH (21:48)
[2019-10-23] MEDS: NICOTINE 14 MG/24 HOURS TOPICAL PATCH TD SCH (10:48)
[2019-10-23] MEDS: amLODIPine BESYLATE 10 MG TABLET (FP) PO SCH (10:48)
[2019-10-23] MEDS: PRENATAL VITAMINS W/ FOLIC ACID TABLET (FP) PO SCH (10:48)
[2019-10-23] MEDS: THIAMINE HCL 100 MG TABLET (FP) PO SCH (21:31)
[2019-10-24 08:42] VITALS: TEMP 98.1
[2019-10-24] MEDS: NICOTINE 14 MG/24 HOURS TOPICAL PATCH TD SCH (10:43)
[2019-10-24] MEDS: PRENATAL VITAMINS W/ FOLIC ACID TABLET (FP) PO SCH (10:43)
[2019-10-24] MEDS: amLODIPine BESYLATE 10 MG TABLET (FP) PO SCH (10:43)
[2019-10-24 11:28] VITALS: BP 112/71; PULSE 84
--- NOTE | 2019-10-24 12:07 | DS ---
[facility] Rehab Discharge Summary - [facility] Rehab Discharge Summary Admission Date: 10/11/19 Discharge Date: 10/24/19 - History Present History: Alcohol dependence, Cocaine dependence Additional Comments: Pt is a 58 y/o male with a hx of DM admitted to rehab and requesting early discharge today stating personal family issues he states he needs to sorted out. Pt met with counselor and has been connected to CD aftercare referral after discharge. Pertinent Past History: HTN Hep C Depression/Anxiety - Discharge Physical Exam Vital Signs: Vital Signs Temperature 98.1 F 10/24/19 06:30 Pulse Rate 84 10/24/19 10:00 Respiratory Rate 18 10/24/19 06:30 Blood Pressure 112/71 10/24/19 10:00 O2 Sat by Pulse Oximetry (%) Alert o x 3,denies s/h/i nad oob ambulating with steady gait cardiac:s1 s2, rrr lungs;cta,sabine. abdomen:flat,+bs extremities/skin:no edema;skin intact. Pertinent Admission Physical Exam Findings: Laboratory Tests 10/11/19 10/11/19 10/11/19 13:45 13:45 13:45 WBC 3.7 L RBC 4.09 Hgb 11.9 Hct 35.8 MCV 87.5 MCH 29.1 MCHC 33.2 RDW 15.9 Plt Count 265 MPV 8.7 Sodium 139 Potassium 3.9 Chloride 106 Carbon Dioxide 28 Anion Gap 6 L BUN 10.7 Creatinine 1.1 Est GFR (CKD-EPI)AfAm 84.12 Est GFR (CKD-EPI)NonAf 72.58 Random Glucose 63 L Calcium 9.2 Total Bilirubin 0.4 AST 24 ALT 30 Alkaline Phosphatase 80 Total Protein 7.7 Albumin 3.8 Urine Color Urine Appearance Urine pH Ur Specific [place] Urine Protein Urine Glucose (UA) Urine Ketones Urine Blood Urine Nitrite Urine Bilirubin Urine Urobilinogen Ur Leukocyte Esterase RPR Titer Nonreactive 10/12/19 02:45 WBC RBC Hgb Hct MCV MCH MCHC RDW Plt Count MPV Sodium Potassium Chloride Carbon Dioxide Anion Gap BUN Creatinine Est GFR (CKD-EPI)AfAm Est GFR (CKD-EPI)NonAf Random Glucose Calcium Total Bilirubin AST ALT Alkaline Phosphatase Total Protein Albumin Urine Color Yellow Urine Appearance Cloudy Urine pH 7.5 D Ur Specific [place] 1.017 Urine Protein Negative Urine Glucose (UA) Negative Urine Ketones Negative Urine Blood Negative Urine Nitrite Negative Urine Bilirubin Negative Urine Urobilinogen 0.2 Ur Leukocyte Esterase Negative RPR Titer - Treatment Discharge Condition: Discharge condition good Hospital Course: Rehabilitated safely CD aftercare [facility] accepted and pt states he will follow up on his own. - Medication Discharge Medications: Ambulatory Orders Amlodipine Besylate [Norvasc -] 10 mg PO DAILY 14 Days #14 tablet 10/24/19 - Medication-Assisted Treatment (MAT) Medication-Assisted Treatment (MAT): No - Discharge Instructions Diet, activity, other medical instructions: Diet:LEO Activity: oob ad lb Other medical instructions:follow up with CD aftercare at [facility] as scheduled. Follow up with primary care with [facility] within 1 week after discharge. - Diagnosis (1) Alcohol use disorder Status: Chronic (2) Cocaine dependence Status: Chronic Qualifiers: Substance use status: uncomplicated Qualified Code(s): F14.20 - Cocaine dependence, uncomplicated (3) Hepatitis C Status: Chronic Qualifiers: Viral hepatitis chronicity: carrier Qualified Code(s): B18.2 - Chronic viral hepatitis C (4) Hypertension Status: Chronic Qualifiers: Hypertension type: essential hypertension Qualified Code(s): I10 - Essential (primary) hypertension (5) Nicotine dependence Status: Chronic Qualifiers: Nicotine product type: cigarettes Substance use status: uncomplicated Qualified Code(s): F17.210 - Nicotine dependence, cigarettes, uncomplicated - Follow-up Referral Minutes to complete discharge: 20 - AMA Did Patient Leave Against Medical Advice: No
== END 2019-10-24 12:27 | disposition home or self-care (01) | DRG 772 ==
LOC: YASAS 08:43 → Y5N 13:19
PROVIDERS: ADMIT Allergy & Immunology; ATTEND Allergy & Immunology
PROC: HZ42ZZZ Group Counseling for Substance Abuse Treatment, Cognitive-Behavioral (ICD-10-PCS; principal; 2019-10-11)
DX: F10.20 Alcohol dependence, uncomplicated (principal); F14.20 Cocaine dependence, uncomplicated; F17.210 Nicotine dependence, cigarettes, uncomplicated; F41.8 Other specified anxiety disorders; F32.9 Major depressive disorder, single episode, unspecified; I10 Essential (primary) hypertension; B18.2 Chronic viral hepatitis C; D72.819 Decreased white blood cell count, unspecified; R63.4 Abnormal weight loss; Z68.1 Body mass index [BMI] 19.9 or less, adult
CPT/HCPCS: 36415; 80053; 81003; 85027; 86593

== ENCOUNTER 2022-01-27 16:55 | Inpatient (IN) | payer OTHER ==
[2022-01-27 18:20] VITALS: BMI 17.4
[2022-01-27] MEDS ORDERED: ONDANSETRON *ODT* 4 MG TABLET SL PRN (23:21)
[2022-01-27] MEDS ORDERED: MAGNESIUM HYDROX 2400MG/30ML ORAL SUSPENSION 30 ML CUP PO PRN (23:21)
[2022-01-27] MEDS ORDERED: METHOCARBAMOL 500 MG TABLET PO PRN (23:21)
[2022-01-27] MEDS ORDERED: IBUPROFEN 400 MG TABLET (FP) PO PRN (23:21)
[2022-01-27] MEDS ORDERED: BISMUTH SUBSALICYLATE 524 MG/30 ML PO PRN (23:21)
[2022-01-27] MEDS ORDERED: DICYCLOMINE HCL 10 MG CAPSULE PO PRN (23:21)
[2022-01-27] MEDS ORDERED: IBUPROFEN 600 MG TABLET (FP) PO PRN (23:21)
[2022-01-27] MEDS ORDERED: MAGNESIUM CITRATE 300 ML BOTTLE PO PRN (23:21)
[2022-01-27] MEDS ORDERED: BENZOCAINE/MENTHOL (CHLORASEPTIC ) LOZENGE MM PRN (23:21)
[2022-01-27] MEDS ORDERED: NICOTINE POLACRILEX 2 MG GUM BUC PRN (23:21)
[2022-01-27] MEDS ORDERED: LOPERAMIDE HCL 2 MG CAPSULE PO PRN (23:21)
[2022-01-27] MEDS ORDERED: hydrOXYzine PAMOATE 25 MG CAPSULE (FP) PO PRN (23:21)
[2022-01-27] MEDS ORDERED: MELATONIN 5 MG TABLETS PO PRN (23:21)
[2022-01-27] MEDS ORDERED: MAG HYDROX/AL HYDROX/SIMETH 30 ML UNIT-DOSE CUP PO PRN (23:21)
[2022-01-27] MEDS ORDERED: ACETAMINOPHEN 325 MG TABLET (FP) PO PRN ×2 (23:21)
[2022-01-27] MEDS ORDERED: NICOTINE 10 MG CARTRIDGE (INHALER) IH PRN (23:21)
[2022-01-28] MEDS: amLODIPine BESYLATE 10 MG TABLET (FP) PO SCH ×2 (00:40→10:46)
[2022-01-28] MEDS: PRENATAL VITAMINS W/ FOLIC ACID TABLET (FP) PO SCH (10:46)
[2022-01-28 11:10] LABS: HEMATOCRIT 37.7 % (35.4-49); HEMOGLOBIN 12.5 GM/dL (11.7-16.9); MEAN CELL VOLUME 87.7 fl (80-96); MEAN PLT VOLUME 9.3 fl (7.5-11.1); PLATELET COUNT 259 10^3/uL (134-434); RDW 15.2 % (11.9-15.9); WHITE BLOOD COUNT 3.8 K/mm3 (4.0-10.0)
[2022-01-28 11:20] LABS: ALBUMIN 4.2 g/dl (3.4-5.0); BLOOD UREA NITROGEN 17.4 mg/dL (7-18); CALCIUM 9.8 mg/dL (8.5-10.1)
[2022-01-28 11:22] LABS: CREATININE 1.3 mg/dL (0.55-1.3)
[2022-01-28 11:24] LABS: BILIRUBIN,TOTAL 0.7 mg/dL (0.2-1); TOT PROT 7.7 g/dl (6.4-8.2)
[2022-01-28] MEDS ORDERED: THIAMINE HCL 100 MG TABLET (FP) PO SCH (22:00)
[2022-01-28] MEDS ORDERED: MINERAL OIL/PETROLAT/WATER TOPICAL CREAM 113 GM JAR TP SCH (22:00)
[2022-01-29 09:11] VITALS: BP 124/83; PULSE 77; TEMP 97
[2022-01-29] MEDS: amLODIPine BESYLATE 10 MG TABLET (FP) PO SCH (10:35)
[2022-01-29] MEDS: PRENATAL VITAMINS W/ FOLIC ACID TABLET (FP) PO SCH (10:35)
== END 2022-01-29 12:35 | disposition other institution (70) | DRG 774 ==
LOC: YASAS 16:55 → Y6N 21:01 → UNDOADMIN 21:01
PROVIDERS: ADMIT Allergy & Immunology; ATTEND Surgery
PROC: HZ2ZZZZ Detoxification Services for Substance Abuse Treatment (ICD-10-PCS; principal; 2022-01-27)
DX: F10.230 Alcohol dependence with withdrawal, uncomplicated (principal); F14.20 Cocaine dependence, uncomplicated; F17.210 Nicotine dependence, cigarettes, uncomplicated; F19.282 Other psychoactive substance dependence with psychoactive substance-induced sleep disorder; F19.24 Other psychoactive substance dependence with psychoactive substance-induced mood disorder; F32.A Depression, unspecified; B18.2 Chronic viral hepatitis C; R63.4 Abnormal weight loss; Z68.1 Body mass index [BMI] 19.9 or less, adult; Z59.00 Homelessness unspecified; Z56.0 Unemployment, unspecified; Z91.018 Allergy to other foods
CPT/HCPCS: 36415; 80053; 85027; 86780; C9803-CS; U0003; U0005

== ENCOUNTER 2022-01-29 12:44 | Inpatient (IN) | payer OTHER ==
[2022-01-29] MEDS ORDERED: P-EPHED 60MG/TRIPROLIDI 2.5MG TABLET PO PRN (13:35)
[2022-01-29] MEDS ORDERED: MAGNESIUM HYDROX 2400MG/30ML ORAL SUSPENSION 30 ML CUP PO PRN (13:35)
[2022-01-29] MEDS ORDERED: MAGNESIUM CITRATE 300 ML BOTTLE PO PRN (13:35)
[2022-01-29] MEDS ORDERED: BENZOCAINE/MENTHOL (CHLORASEPTIC ) LOZENGE MM PRN (13:35)
[2022-01-29] MEDS ORDERED: LOPERAMIDE HCL 2 MG CAPSULE PO PRN (13:35)
[2022-01-29] MEDS ORDERED: IBUPROFEN 400 MG TABLET (FP) PO PRN (13:35)
[2022-01-29] MEDS ORDERED: ACETAMINOPHEN 325 MG TABLET (FP) PO PRN (13:35)
[2022-01-29] MEDS ORDERED: guaiFENesin 200 MG/10 ML 10 ML UNIT-DOSE CUPS PO PRN (13:35)
[2022-01-29] MEDS: NICOTINE 10 MG CARTRIDGE (INHALER) IH PRN (14:48)
[2022-01-29] MEDS: MELATONIN 5 MG TABLETS PO SCH (21:07)
[2022-01-29] MEDS: hydrOXYzine PAMOATE 25 MG CAPSULE (FP) PO PRN (21:08)
[2022-01-29] MEDS: THIAMINE HCL 100 MG TABLET (FP) PO SCH (21:08)
[2022-01-30] MEDS: PRENATAL VITAMINS W/ FOLIC ACID TABLET (FP) PO SCH (09:46)
[2022-01-30] MEDS: amLODIPine BESYLATE 10 MG TABLET (FP) PO SCH (09:47)
[2022-01-30] MEDS: NICOTINE 7 MG/24 HOURS TOPICAL PATCH TD SCH (09:47)
[2022-01-30] MEDS: MELATONIN 5 MG TABLETS PO SCH (21:04)
[2022-01-30] MEDS: THIAMINE HCL 100 MG TABLET (FP) PO SCH (21:04)
[2022-01-30] MEDS: hydrOXYzine PAMOATE 25 MG CAPSULE (FP) PO PRN (21:05)
[2022-01-31] MEDS: PRENATAL VITAMINS W/ FOLIC ACID TABLET (FP) PO SCH (09:48)
[2022-01-31] MEDS: amLODIPine BESYLATE 10 MG TABLET (FP) PO SCH (09:49)
[2022-01-31] MEDS: NICOTINE 7 MG/24 HOURS TOPICAL PATCH TD SCH (09:49)
[2022-01-31] MEDS: MELATONIN 5 MG TABLETS PO SCH (21:04)
[2022-01-31] MEDS: THIAMINE HCL 100 MG TABLET (FP) PO SCH (21:04)
[2022-02-01] MEDS: NICOTINE 7 MG/24 HOURS TOPICAL PATCH TD SCH (09:56)
[2022-02-01] MEDS: PRENATAL VITAMINS W/ FOLIC ACID TABLET (FP) PO SCH (09:56)
[2022-02-01] MEDS: amLODIPine BESYLATE 10 MG TABLET (FP) PO SCH (09:56)
[2022-02-01] MEDS: NICOTINE 10 MG CARTRIDGE (INHALER) IH PRN (13:10)
[2022-02-01] MEDS: THIAMINE HCL 100 MG TABLET (FP) PO SCH (21:12)
[2022-02-01] MEDS: MELATONIN 5 MG TABLETS PO SCH (21:13)
[2022-02-02] MEDS: PRENATAL VITAMINS W/ FOLIC ACID TABLET (FP) PO SCH (10:02)
[2022-02-02] MEDS: amLODIPine BESYLATE 10 MG TABLET (FP) PO SCH (10:02)
[2022-02-02] MEDS: NICOTINE 7 MG/24 HOURS TOPICAL PATCH TD SCH (10:02)
[2022-02-02] MEDS: NICOTINE 10 MG CARTRIDGE (INHALER) IH PRN ×3 (12:58→22:11)
[2022-02-02] MEDS: MELATONIN 5 MG TABLETS PO SCH (21:10)
[2022-02-02] MEDS: THIAMINE HCL 100 MG TABLET (FP) PO SCH (21:10)
[2022-02-03] MEDS: NICOTINE 10 MG CARTRIDGE (INHALER) IH PRN ×3 (08:31→21:07)
[2022-02-03] MEDS: PRENATAL VITAMINS W/ FOLIC ACID TABLET (FP) PO SCH (10:01)
[2022-02-03] MEDS: NICOTINE 7 MG/24 HOURS TOPICAL PATCH TD SCH (10:01)
[2022-02-03] MEDS: amLODIPine BESYLATE 10 MG TABLET (FP) PO SCH (10:01)
[2022-02-03] MEDS: THIAMINE HCL 100 MG TABLET (FP) PO SCH (21:07)
[2022-02-03] MEDS: MELATONIN 5 MG TABLETS PO SCH (21:08)
[2022-02-04] MEDS: PRENATAL VITAMINS W/ FOLIC ACID TABLET (FP) PO SCH (09:50)
[2022-02-04] MEDS: NICOTINE 7 MG/24 HOURS TOPICAL PATCH TD SCH (09:50)
[2022-02-04] MEDS: NICOTINE 10 MG CARTRIDGE (INHALER) IH PRN ×2 (09:51→21:13)
[2022-02-04] MEDS: amLODIPine BESYLATE 10 MG TABLET (FP) PO SCH (09:51)
[2022-02-04] MEDS: MELATONIN 5 MG TABLETS PO SCH (21:12)
[2022-02-04] MEDS: THIAMINE HCL 100 MG TABLET (FP) PO SCH (21:12)
[2022-02-05] MEDS: NICOTINE 7 MG/24 HOURS TOPICAL PATCH TD SCH (09:58)
[2022-02-05] MEDS: PRENATAL VITAMINS W/ FOLIC ACID TABLET (FP) PO SCH (09:58)
[2022-02-05] MEDS: amLODIPine BESYLATE 10 MG TABLET (FP) PO SCH (09:59)
[2022-02-05] MEDS: NICOTINE 10 MG CARTRIDGE (INHALER) IH PRN ×2 (09:59→21:14)
[2022-02-05] MEDS: MELATONIN 5 MG TABLETS PO SCH (21:14)
[2022-02-05] MEDS: THIAMINE HCL 100 MG TABLET (FP) PO SCH (21:14)
[2022-02-06] MEDS: NICOTINE 10 MG CARTRIDGE (INHALER) IH PRN ×2 (09:53→21:13)
[2022-02-06] MEDS: amLODIPine BESYLATE 10 MG TABLET (FP) PO SCH (09:53)
[2022-02-06] MEDS: PRENATAL VITAMINS W/ FOLIC ACID TABLET (FP) PO SCH (09:53)
[2022-02-06] MEDS: NICOTINE 7 MG/24 HOURS TOPICAL PATCH TD SCH (09:53)
[2022-02-06] MEDS: THIAMINE HCL 100 MG TABLET (FP) PO SCH (21:12)
[2022-02-06] MEDS: MELATONIN 5 MG TABLETS PO SCH (21:12)
[2022-02-07] MEDS: PRENATAL VITAMINS W/ FOLIC ACID TABLET (FP) PO SCH (09:41)
[2022-02-07] MEDS: amLODIPine BESYLATE 10 MG TABLET (FP) PO SCH (09:41)
[2022-02-07] MEDS: NICOTINE 7 MG/24 HOURS TOPICAL PATCH TD SCH (09:41)
[2022-02-07] MEDS: NICOTINE 10 MG CARTRIDGE (INHALER) IH PRN ×3 (09:42→21:47)
[2022-02-07] MEDS: MELATONIN 5 MG TABLETS PO SCH (21:47)
[2022-02-07] MEDS: THIAMINE HCL 100 MG TABLET (FP) PO SCH (21:47)
[2022-02-08] MEDS: NICOTINE 10 MG CARTRIDGE (INHALER) IH PRN ×3 (07:51→21:11)
[2022-02-08] MEDS: PRENATAL VITAMINS W/ FOLIC ACID TABLET (FP) PO SCH (09:43)
[2022-02-08] MEDS: NICOTINE 7 MG/24 HOURS TOPICAL PATCH TD SCH (09:43)
[2022-02-08] MEDS: amLODIPine BESYLATE 10 MG TABLET (FP) PO SCH (09:43)
[2022-02-08] MEDS: MAG HYDROX/AL HYDROX/SIMETH 30 ML UNIT-DOSE CUP PO PRN (09:45)
[2022-02-08] MEDS: THIAMINE HCL 100 MG TABLET (FP) PO SCH (21:10)
[2022-02-08] MEDS: MELATONIN 5 MG TABLETS PO SCH (21:12)
[2022-02-09] MEDS: NICOTINE 7 MG/24 HOURS TOPICAL PATCH TD SCH (09:58)
[2022-02-09] MEDS: PRENATAL VITAMINS W/ FOLIC ACID TABLET (FP) PO SCH (09:58)
[2022-02-09] MEDS: amLODIPine BESYLATE 10 MG TABLET (FP) PO SCH (09:58)
[2022-02-09] MEDS: NICOTINE 10 MG CARTRIDGE (INHALER) IH PRN ×2 (09:59→21:15)
[2022-02-09] MEDS: MAG HYDROX/AL HYDROX/SIMETH 30 ML UNIT-DOSE CUP PO PRN (13:58)
[2022-02-09] MEDS: MELATONIN 5 MG TABLETS PO SCH (21:14)
[2022-02-09] MEDS: THIAMINE HCL 100 MG TABLET (FP) PO SCH (21:14)
[2022-02-10] MEDS: PRENATAL VITAMINS W/ FOLIC ACID TABLET (FP) PO SCH (09:51)
[2022-02-10] MEDS: amLODIPine BESYLATE 10 MG TABLET (FP) PO SCH (09:51)
[2022-02-10] MEDS: NICOTINE 10 MG CARTRIDGE (INHALER) IH PRN ×3 (09:52→21:26)
[2022-02-10] MEDS: NICOTINE 7 MG/24 HOURS TOPICAL PATCH TD SCH (09:52)
[2022-02-10] MEDS: MELATONIN 5 MG TABLETS PO SCH (21:25)
[2022-02-10] MEDS: THIAMINE HCL 100 MG TABLET (FP) PO SCH (21:25)
[2022-02-11 07:00] VITALS: TEMP 98.4
[2022-02-11] MEDS: amLODIPine BESYLATE 10 MG TABLET (FP) PO SCH (09:13)
[2022-02-11] MEDS: PRENATAL VITAMINS W/ FOLIC ACID TABLET (FP) PO SCH (09:13)
[2022-02-11] MEDS: NICOTINE 7 MG/24 HOURS TOPICAL PATCH TD SCH (09:13)
[2022-02-11] MEDS: NICOTINE 10 MG CARTRIDGE (INHALER) IH PRN (09:13)
[2022-02-11 10:39] VITALS: BP 133/85; PULSE 86
== END 2022-02-11 09:38 | disposition home or self-care (01) | DRG 772 ==
LOC: YASAS 12:44 → Y5N 12:45
PROVIDERS: ADMIT Allergy & Immunology; ATTEND Psychiatry & Neurology Pain Medicine
PROC: HZ42ZZZ Group Counseling for Substance Abuse Treatment, Cognitive-Behavioral (ICD-10-PCS; principal; 2022-01-29)
DX: F10.20 Alcohol dependence, uncomplicated (principal); F14.20 Cocaine dependence, uncomplicated; F12.20 Cannabis dependence, uncomplicated; F17.210 Nicotine dependence, cigarettes, uncomplicated; F32.A Depression, unspecified; I10 Essential (primary) hypertension; R63.4 Abnormal weight loss; Z68.1 Body mass index [BMI] 19.9 or less, adult; Z91.010 Allergy to peanuts; Z91.018 Allergy to other foods